=== PATIENT | male | born 1990 | race Caucasian/White ===

== ENCOUNTER 2019-06-25 10:25 | Emergency (ER) | payer OTHER ==
[~2019-06-25] VITALS: Ht 175.3 cm; Wt 95.3 kg
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
--- NOTE | 2019-06-25 10:41 | NUR ---
[employer] AT BEDSIDE.
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
[2019-06-25] MEDS ORDERED: MORPHINE SULFATE INJ 4 MG/ML DISP.SYRIN ONE (11:01)
[2019-06-25] MEDS ORDERED: TDAP [DIPH/PERTUSSIS/TET] 0.5 ML VIAL IM ONE (11:02)
[2019-06-25 11:06] LABS: BASOPHILS # (AUTO) 0.1 /CMM (0.0-0.2); BASOPHILS % (AUTO) 0.4 % (0.0-2.0); EOSINOPHILS % (AUTO) 0.1 % (0.0-6.0); HEMATOCRIT 45 % (39-51); HEMOGLOBIN 15.2 g/dL (13.5-17.5); LYMPHOCYTES # (AUTO) 2.1 /CMM (0.8-4.8); MEAN CORPUSCULAR HGB CONC 34 g/dl (31.0-36.0); MEAN CORPUSCULAR VOLUME 85 fL (80-96); MONOCYTES # (AUTO) 0.6 /CMM (0.1-1.30); NEUTROPHILS # (AUTO) 8.4 /CMM (1.8-8.9); NEUTROPHILS % (AUTO) 75.5 % (43.0-81.0); PLATELET COUNT (AUTO) 379 /CMM (150-450); RED BLOOD CELL COUNT(AUTO) 5.34 MIL/uL (4.5-6.0); WHITE BLOOD COUNT (AUTO) 11.1 K/uL (4.3-11.0)
[2019-06-25] MEDS: TDAP [DIPH/PERTUSSIS/TET] 0.5 ML VIAL IM ONE (11:10)
[2019-06-25] MEDS: IV NS 0.9% 1,000 ML BAG IV ONE (11:10)
[2019-06-25] MEDS: MORPHINE SULFATE INJ 2 MG/ML DISP.SYRIN IV ONE (11:10)
[2019-06-25 11:12] LABS: CALCIUM, SERUM 9.8 mg/dL (8.5-10.1); CREATININE 1.5 mg/dL (0.6-1.3); POTASSIUM 3.5 mmol/L (3.5-5.1)
[2019-06-25 11:18] LABS: ALBUMIN 4.3 g/dL (3.4-5.0); BILIRUBIN,DIRECT 0.2 mg/dL (0.0-0.2); BILIRUBIN,TOTAL 1.3 mg/dL (0.2-1.0)
--- NOTE | 2019-06-25 12:35 | NUR ---
Patient discharged to home in stable condition. Written and verbal after care instructions given. Patient verbalizes understanding of instruction.
[2019-06-25 12:52] VITALS: BP 138/85
== END 2019-06-25 12:53 | disposition home or self-care (01) ==
LOC: ER 10:26
DX: S00.211A Abrasion of right eyelid and periocular area, initial encounter (principal); S00.81XA Abrasion of other part of head, initial encounter; R51 Headache; G89.29 Other chronic pain; M25.551 Pain in right hip; F41.9 Anxiety disorder, unspecified; Z98.890 Other specified postprocedural states; Y08.89XA Assault by other specified means, initial encounter; Y93.39 Activity, other involving climbing, rappelling and jumping off; Y92.481 Parking lot as the place of occurrence of the external cause; Y99.8 Other external cause status
CPT/HCPCS: 36415; 70450; 70486; 71045; 72125; 73502; 80048; 80076; 85025; 85730; 90471; 90715; 96374; 99284; A6403; J2270; J7030

== ENCOUNTER 2021-05-02 23:47 | Inpatient (IN) | payer OTHER ==
[~2021-05-02] VITALS: Ht 175.3 cm; Wt 86.2 kg
[2021-05-03] VITALS (40 sets, daily range): BP systolic 84–137; BP diastolic 43–77
[2021-05-03] MEDS ORDERED: PROPOFOL 100 ML ONE (00:05)
[2021-05-03 00:13] LABS: BASOPHILS # (AUTO) 0.2 K/uL (0.0-0.2); BASOPHILS % (AUTO) 0.4 % (0.0-2.0); EOSINOPHILS % (AUTO) 0.1 % (0.0-6.0); HEMATOCRIT 52 % (39-51); HEMOGLOBIN 16.5 g/dL (13.5-17.5); LYMPHOCYTES # (AUTO) 1.3 K/uL (0.8-4.8); LYMPHOCYTES % (AUTO) 3.3 % (20.0-44.0); MEAN CORPUSCULAR HGB CONC 31 g/dl (31.0-36.0); MEAN CORPUSCULAR VOLUME 89 fL (80-96); MONOCYTES # (AUTO) 3.2 K/uL (0.1-1.30); MONOCYTES % (AUTO) 8.2 % (2.0-12.0); NEUTROPHILS # (AUTO) 34.8 K/uL (1.8-8.9); PLATELET COUNT (AUTO) 678 K/uL (150-450); RED BLOOD CELL COUNT(AUTO) 5.89 MIL/uL (4.5-6.0)
[2021-05-03 00:27] LABS: ALANINE AMINOTRANSFERASE 81 U/L (12-78); ALBUMIN 4.5 g/dL (3.4-5.0); ALKALINE PHOSPHATASE 77 U/L (46-116); ASPARTATE AMINOTRANSFERASE 46 U/L (15-37); BILIRUBIN,DIRECT 0.1 mg/dL (0.0-0.2); BILIRUBIN,TOTAL 0.5 mg/dL (0.2-1.0); CALCIUM, SERUM 9.3 mg/dL (8.5-10.1); CHLORIDE 107 mmol/L (98-107); CREATININE 2.4 mg/dL (0.6-1.3); GLUCOSE 179 mg/dL (74-106); POTASSIUM 5.4 mmol/L (3.5-5.1); SODIUM SERUM 141 mmol/L (136-145); TOTAL PROTEIN, SERUM 9.2 g/dL (6.4-8.2); UREA NITROGEN, BLOOD 21 mg/dL (7-18); WHITE BLOOD COUNT (AUTO) 39.5 K/uL (4.3-11.0)
[2021-05-03] MEDS ORDERED: IV NS 0.9% 1,000 ML BAG IV ONE ×2 (00:30)
[2021-05-03 00:40] LABS: CARBON DIOXIDE 6 mmol/L (21-32)
[2021-05-03] MEDS ORDERED: SODIUM BICARBONATE SYR 50 MEQ/50 ML DISP.SYRIN ONE ×6 (00:58→03:27)
[2021-05-03] MEDS ORDERED: SODIUM BICARBONATE SYR 50 MEQ/50 ML DISP.SYRIN IV ONE ×4 (01:00→03:30)
[2021-05-03 01:53] LABS: CREATINE KINASE, TOTAL 516 U/L (39-308)
[2021-05-03] MEDS ORDERED: PIPERACILLIN /TAZOBACTAM 3.375 G in IV D5W 50 ML IV ONE (02:00)
[2021-05-03] MEDS ORDERED: PIPERACILLIN /TAZOBACTAM 3.375 G VIAL IV ONE (02:02)
[2021-05-03] MEDS: [UNRECOGNIZED DRUG - OTHER] XX ONE ×2 (02:17→02:30)
[2021-05-03 02:40] LABS: ABG BASE EXCESS -28.6 mmol/L; ABG PCO2 52.2 mmHg (35.0-45.0); ABG PH 6.763 (7.350-7.450); ABG PO2 452.2 mmHg (75.0-100.0); COHb 0.3 % (0.5-1.5); MetHb 0.8 % (0.0-1.5); O2Hb 98.3 % (94.0-97.0); PEEP,BG 5 cm H2O; SITE, ABG Right Radial; VENT MODE, BG AC24 500 100% PEEP+0; VT, ABG 500 mL
[2021-05-03] MEDS ORDERED: SODIUM BICARBONATE 5 MEQ/10 ML DISP.SYRIN IV ONE (03:00)
[2021-05-03] MEDS ORDERED: ACETAMINOPHEN 325 MG TABLET PO PRN (04:00)
[2021-05-03] MEDS ORDERED: IV LR 1000 ML 1,000 ML IV SCH (04:00)
[2021-05-03] MEDS ORDERED: Z GUARD REMEDY 2 OZ OINT TP PRN (04:00)
[2021-05-03] MEDS ORDERED: MORPHINE SULFATE INJ 2 MG/ML DISP.SYRIN IV PRN (04:00)
[2021-05-03] MEDS ORDERED: ONDANSETRON HCL/PF 4 MG/2 ML VIAL IVP PRN (04:00)
[2021-05-03 05:10] LABS: ABG BASE EXCESS -23.4 mmol/L; ABG PCO2 45.9 mmHg (35.0-45.0); ABG PH 6.919 (7.350-7.450); ABG PO2 99.5 mmHg (75.0-100.0); COHb 0.2 % (0.5-1.5); MetHb 0.6 % (0.0-1.5); O2Hb 94.8 % (94.0-97.0); SITE, ABG Left Radial
[2021-05-03 05:13] LABS: CALCIUM, SERUM 7.4 mg/dL (8.5-10.1); CREATININE 3.3 mg/dL (0.6-1.3)
[2021-05-03 05:20] LABS: BILIRUBIN,TOTAL 0.5 mg/dL (0.2-1.0); TOTAL PROTEIN, SERUM 6.4 g/dL (6.4-8.2)
[2021-05-03] MEDS ORDERED: VANCOMYCIN 1 GM in IV D5W 250 ML IV ONE ×2 (05:30→08:30)
[2021-05-03] MEDS ORDERED: CEFEPIME 1 GM in IV D5W 50 ML IV ONE (05:30)
[2021-05-03] MEDS: PROPOFOL 100 ML IV PRN ×7 (08:22→21:58)
[2021-05-03] MEDS ORDERED: CEFEPIME 1 GM in IV D5W 50 ML IV SCH (09:00)
[2021-05-03] MEDS ORDERED: VANCOMYCIN 1 GM in IV D5W 250 ML IV SCH (09:00)
[2021-05-03] MEDS: SODIUM BICARBONATE IV SCH ×6 (09:06→21:58)
[2021-05-03] MEDS: [UNRECOGNIZED DRUG - OTHER] IV SCH ×6 (09:06→21:58)
[2021-05-03] MEDS ORDERED: FEE EMEERGENCY 1 MIN EA MC ONE (09:10)
[2021-05-03] MEDS ORDERED: ROCURONIUM BROMIDE 50 MG/5 ML IV ONE (09:10)
[2021-05-03] MEDS ORDERED: ETOMIDATE 2 MG/ML VIAL IV ONE (09:10)
[2021-05-03] MEDS: CEFEPIME 1 GM in IV D5W 50 ML IV SCH (10:03)
[2021-05-03 10:33] LABS: ABG BASE EXCESS -6.4 mmol/L; ABG PCO2 29.3 mmHg (35.0-45.0); ABG PH 7.389 (7.350-7.450); ABG PO2 268.3 mmHg (75.0-100.0); COHb 0.3 % (0.5-1.5); MetHb 0.3 % (0.0-1.5); O2Hb 98.3 % (94.0-97.0); SITE, ABG Right Radial
[2021-05-03] MEDS ORDERED: PHENYLEPHRINE 100 MG in IV NS 0.9% 240 ML IV PRN (11:00)
[2021-05-03 11:31] LABS: CALCIUM, SERUM 6.7 mg/dL (8.5-10.1); CREATININE 2.9 mg/dL (0.6-1.3); POTASSIUM 3.6 mmol/L (3.5-5.1)
[2021-05-03] MEDS: MORPHINE SULFATE INJ 2 MG/ML DISP.SYRIN IV PRN (11:34)
[2021-05-03 11:37] LABS: ALBUMIN 2.5 g/dL (3.4-5.0); TOTAL PROTEIN, SERUM 5.3 g/dL (6.4-8.2)
[2021-05-03 15:37] LABS: CALCIUM, SERUM 6.6 mg/dL (8.5-10.1); CREATININE 3.7 mg/dL (0.6-1.3); POTASSIUM 3.2 mmol/L (3.5-5.1)
[2021-05-03 15:43] LABS: ALBUMIN 2.3 g/dL (3.4-5.0); BILIRUBIN,TOTAL 1.2 mg/dL (0.2-1.0)
[2021-05-03 16:21] LABS: BILIRUBIN,URINE NEGATIVE (NEGATIVE); COLOR,URINE YELLOW (YELLOW); LEUKOCYTE ESTERASE ,URINE MODERATE (NEGATIVE); NITRITE, URINE NEGATIVE (NEGATIVE); PH,URINE 5.5 (5.0-8.0); PROTEIN,URINE 100 mg/dl (NEGATIVE); UGLUCOSE NEGATIVE (NEGATIVE); UROBILINOGEN,URINE 0.2 EU/dL (0.2)
[2021-05-03 16:35] LABS: BACTERIA,URINE Many /HPF (None Seen); RBC,URINE 51-80 /HPF (0-2); SQUAMOUS EPITHELIAL CELL,UR Moderate /HPF (None Seen)
[2021-05-03 20:24] LABS: CALCIUM, SERUM 6.5 mg/dL (8.5-10.1); CREATININE 4.5 mg/dL (0.6-1.3); POTASSIUM 3.2 mmol/L (3.5-5.1)
[2021-05-03 20:30] LABS: ALBUMIN 2.1 g/dL (3.4-5.0); BILIRUBIN,TOTAL 1.2 mg/dL (0.2-1.0); TOTAL PROTEIN, SERUM 5.1 g/dL (6.4-8.2)
[2021-05-03] MEDS: SILVER SULFADIAZINE 50 GM JAR TP SCH (20:36)
[2021-05-03 23:50] LABS: BAND % (MANUAL) 6 % (0.0-5.0); LYMPHOCYTES % (MANUAL) 6 % (16-48); NEUTROPHILS % (MANUAL) 83 (42-76)
[2021-05-03 23:51] LABS: MONOCYTES % (MANUAL) 5 % (0-11.0)
[2021-05-04] VITALS (33 sets, daily range): BP systolic 115–148; BP diastolic 60–90
[2021-05-04] MEDS: ACETAMINOPHEN 650 MG/SUPP.RECT RC PRN (00:52)
[2021-05-04] MEDS: PROPOFOL 100 ML IV PRN ×11 (01:14→23:58)
[2021-05-04 01:25] LABS: ALBUMIN 2.2 g/dL (3.4-5.0); BILIRUBIN,TOTAL 1.2 mg/dL (0.2-1.0); CALCIUM, SERUM 6.4 mg/dL (8.5-10.1); CREATININE 5.1 mg/dL (0.6-1.3); POTASSIUM 2.9 mmol/L (3.5-5.1); TOTAL PROTEIN, SERUM 5.1 g/dL (6.4-8.2)
[2021-05-04] MEDS: [UNRECOGNIZED DRUG - OTHER] IV SCH ×2 (02:47→07:48)
[2021-05-04] MEDS: SODIUM BICARBONATE IV SCH ×2 (02:47→07:48)
[2021-05-04 04:53] LABS: ALBUMIN 2.3 g/dL (3.4-5.0); BILIRUBIN,TOTAL 1.1 mg/dL (0.2-1.0); CALCIUM, SERUM 6.5 mg/dL (8.5-10.1); CREATININE 5.2 mg/dL (0.6-1.3); MAGNESIUM 1.4 mg/dL (1.8-2.4); PHOSPHORUS 1.5 mg/dL (2.5-4.9); TOTAL PROTEIN, SERUM 5.1 g/dL (6.4-8.2)
[2021-05-04 05:24] LABS: BASOPHILS % (AUTO) 0.3 % (0.0-2.0); HEMATOCRIT 31 % (39-51); HEMOGLOBIN 10.8 g/dL (13.5-17.5); LYMPHOCYTES # (AUTO) 1.4 K/uL (0.8-4.8); LYMPHOCYTES % (AUTO) 12.1 % (20.0-44.0); MEAN CORPUSCULAR HGB CONC 34 g/dl (31.0-36.0); MEAN CORPUSCULAR VOLUME 82 fL (80-96); MONOCYTES # (AUTO) 0.9 K/uL (0.1-1.30); MONOCYTES % (AUTO) 7.9 % (2.0-12.0); NEUTROPHILS # (AUTO) 9.1 K/uL (1.8-8.9); NEUTROPHILS % (AUTO) 79.7 % (43.0-81.0); PLATELET COUNT (AUTO) 190 K/uL (150-450); RED BLOOD CELL COUNT(AUTO) 3.84 MIL/uL (4.5-6.0); WHITE BLOOD COUNT (AUTO) 11.4 K/uL (4.3-11.0)
[2021-05-04 05:27] LABS: POTASSIUM 2.8 mmol/L (3.5-5.1)
[2021-05-04] MEDS: POTASSIUM CL. PREMIX PERIPHER. 50 ML IV SCH ×6 (07:58→23:34)
[2021-05-04] MEDS: Magnesium 1GM/D5W 100ML PREMIX 100 ML IV SCH ×2 (07:58→08:58)
[2021-05-04] MEDS ORDERED: VANCOMYCIN POST DIALYSIS 500MG IV PRN (08:00)
[2021-05-04] MEDS: CEFEPIME 1 GM in IV D5W 50 ML IV SCH (08:07)
[2021-05-04] MEDS: SILVER SULFADIAZINE 50 GM JAR TP SCH (08:20)
[2021-05-04] MEDS ORDERED: SODIUM BICARBONATE IV SCH (08:30)
[2021-05-04] MEDS ORDERED: [UNRECOGNIZED DRUG - OTHER] IV SCH (08:30)
[2021-05-04] MEDS: POTASSIUM PHOSPHATE MM 7.5 MMOL in IV NS 0.9% 100 ML IV SCH ×2 (08:41→11:10)
[2021-05-04 08:56] LABS: CREATININE 5.4 mg/dL (0.6-1.3)
[2021-05-04 09:17] LABS: POTASSIUM 2.1 mmol/L (3.5-5.1)
[2021-05-04 09:18] LABS: CALCIUM, SERUM 5.8 mg/dL (8.5-10.1)
[2021-05-04 09:24] LABS: ALBUMIN 1.9 g/dL (3.4-5.0); TOTAL PROTEIN, SERUM 4.5 g/dL (6.4-8.2)
[2021-05-04] MEDS ORDERED: Calcium Gluconate 1GM/10ML 4.65 MEQ in IV D5W 50 ML IV ONE (09:30)
[2021-05-04] MEDS: IV D5/ 0.9% NACL 1,000 ML IV PRN ×2 (09:47→21:48)
[2021-05-04 09:58] LABS: ABG BASE EXCESS 13.9 mmol/L; ABG OXYGEN SATURATION 93.7 % (92.0-98.5); ABG PCO2 28.8 mmHg (35.0-45.0); ABG PH 7.693 (7.350-7.450); ABG PO2 55.5 mmHg (75.0-100.0); AaDO2 268.6 mmHg; COHb 0.2 % (0.5-1.5); MetHb 0.3 % (0.0-1.5); O2Hb 93.2 % (94.0-97.0); PEEP,BG 50 cm H2O; SITE, ABG Right Radial; VT, ABG 550 mL
[2021-05-04] MEDS ORDERED: IV D5/ 0.9% NACL 1,000 ML IV ONE (10:00)
[2021-05-04 10:54] LABS: CALCIUM, SERUM 6.4 mg/dL (8.5-10.1); CREATININE 6.3 mg/dL (0.6-1.3); POTASSIUM 3.1 mmol/L (3.5-5.1); TOTAL PROTEIN, SERUM 4.9 g/dL (6.4-8.2)
[2021-05-04] MEDS ORDERED: NEPRO 1,000 ML BOTTLE GT PRN (14:00)
[2021-05-04] MEDS ORDERED: VANCOMYCIN 1 GM in IV D5W 250 ML IV ONE (17:00)
[2021-05-04 17:23] LABS: CREATININE 4.2 mg/dL (0.6-1.3); POTASSIUM 3.2 mmol/L (3.5-5.1)
[2021-05-04 17:29] LABS: BILIRUBIN,TOTAL 0.8 mg/dL (0.2-1.0); TOTAL PROTEIN, SERUM 5.2 g/dL (6.4-8.2)
[2021-05-04 20:43] LABS: BILIRUBIN,TOTAL 0.7 mg/dL (0.2-1.0); POTASSIUM 3.3 mmol/L (3.5-5.1); TOTAL PROTEIN, SERUM 5.1 g/dL (6.4-8.2)
[2021-05-04] MEDS: ACETAMINOPHEN 650 MG/20.3 ML UDC NG PRN (21:19)
[2021-05-04] MEDS ORDERED: POTASSIUM CHLORIDE 10 MEQ/50 ML PREMIXED IVPB FOR PERIPHERAL LINE IV ONE (23:30)
[2021-05-05] VITALS (35 sets, daily range): BP systolic 120–150; BP diastolic 62–102
[2021-05-05] MEDS: POTASSIUM CL. PREMIX PERIPHER. 50 ML IV SCH ×3 (00:13→01:17)
[2021-05-05] MEDS: PROPOFOL 100 ML IV PRN ×10 (01:58→22:25)
[2021-05-05 06:54] LABS: CALCIUM, SERUM 7.3 mg/dL (8.5-10.1); CREATININE 6.1 mg/dL (0.6-1.3); POTASSIUM 3.6 mmol/L (3.5-5.1)
[2021-05-05 06:59] LABS: ALBUMIN 1.9 g/dL (3.4-5.0); BILIRUBIN,TOTAL 0.6 mg/dL (0.2-1.0); TOTAL PROTEIN, SERUM 5.1 g/dL (6.4-8.2)
[2021-05-05 07:44] LABS: BASOPHILS % (AUTO) 0.3 % (0.0-2.0); EOSINOPHILS % (AUTO) 1.8 % (0.0-6.0); HEMATOCRIT 30 % (39-51); LYMPHOCYTES # (AUTO) 1.8 K/uL (0.8-4.8); LYMPHOCYTES % (AUTO) 19.9 % (20.0-44.0); MEAN CORPUSCULAR HGB CONC 34 g/dl (31.0-36.0); MEAN CORPUSCULAR VOLUME 84 fL (80-96); MONOCYTES # (AUTO) 0.7 K/uL (0.1-1.30); NEUTROPHILS # (AUTO) 6.5 K/uL (1.8-8.9); PLATELET COUNT (AUTO) 175 K/uL (150-450); RED BLOOD CELL COUNT(AUTO) 3.49 MIL/uL (4.5-6.0); WHITE BLOOD COUNT (AUTO) 9.3 K/uL (4.3-11.0)
[2021-05-05 08:39] LABS: BILIRUBIN,TOTAL 0.7 mg/dL (0.2-1.0); CALCIUM, SERUM 7.4 mg/dL (8.5-10.1); CREATININE 6.6 mg/dL (0.6-1.3); POTASSIUM 3.8 mmol/L (3.5-5.1); TOTAL PROTEIN, SERUM 5.2 g/dL (6.4-8.2)
[2021-05-05] MEDS: CEFEPIME 1 GM in IV D5W 50 ML IV SCH (08:48)
[2021-05-05] MEDS: SILVER SULFADIAZINE 50 GM JAR TP SCH (08:49)
[2021-05-05 08:52] LABS: ABG BASE EXCESS 1.2 mmol/L; ABG PCO2 37.4 mmHg (35.0-45.0); ABG PH 7.445 (7.350-7.450); COHb 0.3 % (0.5-1.5); MetHb 0.2 % (0.0-1.5); PEEP,BG 5 cm H2O; VT, ABG 500 mL
[2021-05-05 11:17] LABS: CALCIUM, SERUM 7.4 mg/dL (8.5-10.1); CREATININE 6.8 mg/dL (0.6-1.3); POTASSIUM 3.9 mmol/L (3.5-5.1)
[2021-05-05 11:31] LABS: BILIRUBIN,TOTAL 0.6 mg/dL (0.2-1.0); TOTAL PROTEIN, SERUM 5.2 g/dL (6.4-8.2)
[2021-05-05] MEDS: IV D5/ 0.9% NACL 1,000 ML IV PRN (11:32)
[2021-05-05] MEDS: ACETAMINOPHEN 650 MG/20.3 ML UDC NG PRN (14:32)
[2021-05-05 16:47] LABS: BILIRUBIN,TOTAL 0.6 mg/dL (0.2-1.0); CALCIUM, SERUM 8.2 mg/dL (8.5-10.1); POTASSIUM 3.9 mmol/L (3.5-5.1); TOTAL PROTEIN, SERUM 5.4 g/dL (6.4-8.2)
[2021-05-05 17:00] LABS: CREATININE 7.7 mg/dL (0.6-1.3)
[2021-05-05 20:43] LABS: BILIRUBIN,TOTAL 0.6 mg/dL (0.2-1.0); CALCIUM, SERUM 7.3 mg/dL (8.5-10.1); POTASSIUM 3.8 mmol/L (3.5-5.1); TOTAL PROTEIN, SERUM 5.3 g/dL (6.4-8.2)
[2021-05-05 20:49] LABS: CREATININE 8.1 mg/dL (0.6-1.3)
[2021-05-05] MEDS: NEPRO 1,000 ML BOTTLE GT PRN (22:24)
[2021-05-06] VITALS (52 sets, daily range): BP systolic 135–167; BP diastolic 70–99
[2021-05-06] MEDS: PROPOFOL 100 ML IV PRN ×13 (00:07→23:49)
[2021-05-06] MEDS: IV D5/ 0.9% NACL 1,000 ML IV PRN (00:08)
[2021-05-06 01:41] LABS: BILIRUBIN,TOTAL 0.5 mg/dL (0.2-1.0); POTASSIUM 3.8 mmol/L (3.5-5.1); TOTAL PROTEIN, SERUM 5.3 g/dL (6.4-8.2)
[2021-05-06 01:49] LABS: CALCIUM, SERUM 7.5 mg/dL (8.5-10.1)
[2021-05-06 01:50] LABS: CREATININE 8.7 mg/dL (0.6-1.3)
[2021-05-06 04:28] LABS: BASOPHILS # (AUTO) 0.1 K/uL (0.0-0.2); EOSINOPHILS % (AUTO) 3.4 % (0.0-6.0); HEMATOCRIT 29 % (39-51); HEMOGLOBIN 10.1 g/dL (13.5-17.5); LYMPHOCYTES # (AUTO) 1.3 K/uL (0.8-4.8); LYMPHOCYTES % (AUTO) 15.4 % (20.0-44.0); MEAN CORPUSCULAR HGB CONC 34 g/dl (31.0-36.0); MEAN CORPUSCULAR VOLUME 84 fL (80-96); MONOCYTES # (AUTO) 0.6 K/uL (0.1-1.30); MONOCYTES % (AUTO) 7.4 % (2.0-12.0); NEUTROPHILS # (AUTO) 6.1 K/uL (1.8-8.9); NEUTROPHILS % (AUTO) 72.8 % (43.0-81.0); PLATELET COUNT (AUTO) 200 K/uL (150-450); RED BLOOD CELL COUNT(AUTO) 3.52 MIL/uL (4.5-6.0); WHITE BLOOD COUNT (AUTO) 8.3 K/uL (4.3-11.0)
[2021-05-06 04:47] LABS: ALBUMIN 1.9 g/dL (3.4-5.0); BILIRUBIN,TOTAL 0.6 mg/dL (0.2-1.0); CALCIUM, SERUM 7.9 mg/dL (8.5-10.1); POTASSIUM 3.8 mmol/L (3.5-5.1); TOTAL PROTEIN, SERUM 5.3 g/dL (6.4-8.2)
[2021-05-06 05:17] LABS: CREATININE 8.6 mg/dL (0.6-1.3)
[2021-05-06] MEDS: CEFEPIME 1 GM in IV D5W 50 ML IV SCH (08:33)
[2021-05-06 08:45] LABS: ALBUMIN 1.9 g/dL (3.4-5.0); BILIRUBIN,TOTAL 0.5 mg/dL (0.2-1.0); CALCIUM, SERUM 7.7 mg/dL (8.5-10.1); POTASSIUM 3.8 mmol/L (3.5-5.1); TOTAL PROTEIN, SERUM 5.4 g/dL (6.4-8.2)
[2021-05-06] MEDS: SILVER SULFADIAZINE 50 GM JAR TP SCH (08:53)
[2021-05-06 09:33] LABS: CREATININE 9.3 mg/dL (0.6-1.3)
[2021-05-06] MEDS: NEPRO 1,000 ML BOTTLE GT PRN (10:05)
[2021-05-06] MEDS ORDERED: NEPRO 1,000 ML BOTTLE GT PRN (10:30)
[2021-05-06 11:49] LABS: CALCIUM, SERUM 7.7 mg/dL (8.5-10.1)
[2021-05-06 11:51] LABS: CREATININE 9.6 mg/dL (0.6-1.3)
[2021-05-06 11:56] LABS: BILIRUBIN,TOTAL 0.6 mg/dL (0.2-1.0); TOTAL PROTEIN, SERUM 5.5 g/dL (6.4-8.2)
[2021-05-06] MEDS: PROSOURCE / PROSTAT (PYXIS) 30 ML UDC NG SCH ×2 (12:52→16:02)
[2021-05-06] MEDS: ACETAMINOPHEN 650 MG/20.3 ML UDC NG PRN (16:08)
[2021-05-06] MEDS: hydrALAZINE HCL IV 20 MG VIAL IV PRN (18:32)
[2021-05-06 20:35] LABS: CALCIUM, SERUM 7.6 mg/dL (8.5-10.1); CREATININE 6.9 mg/dL (0.6-1.3); POTASSIUM 3.5 mmol/L (3.5-5.1)
[2021-05-06 20:50] LABS: ALBUMIN 2.1 g/dL (3.4-5.0); BILIRUBIN,TOTAL 0.5 mg/dL (0.2-1.0); TOTAL PROTEIN, SERUM 5.8 g/dL (6.4-8.2)
[2021-05-06] MEDS ORDERED: ALTEPLASE CATHFLO 2 MG/VIAL ONE ×2 (21:54→22:32)
[2021-05-06] MEDS ORDERED: ALTEPLASE CATHFLO 2 MG/VIAL XX ONE ×2 (22:00→22:30)
[2021-05-07] VITALS (91 sets, daily range): BP systolic 140–172; BP diastolic 70–96
[2021-05-07] MEDS: PROPOFOL 100 ML IV PRN ×11 (01:22→23:27)
[2021-05-07 01:57] LABS: BILIRUBIN,TOTAL 0.6 mg/dL (0.2-1.0); CALCIUM, SERUM 7.8 mg/dL (8.5-10.1); POTASSIUM 3.8 mmol/L (3.5-5.1); TOTAL PROTEIN, SERUM 5.6 g/dL (6.4-8.2)
[2021-05-07 02:06] LABS: CREATININE 10.1 mg/dL (0.6-1.3)
[2021-05-07] MEDS: MORPHINE SULFATE INJ 2 MG/ML DISP.SYRIN IV PRN (04:21)
[2021-05-07 05:03] LABS: BASOPHILS % (AUTO) 0.5 % (0.0-2.0); EOSINOPHILS % (AUTO) 4.5 % (0.0-6.0); HEMATOCRIT 29 % (39-51); HEMOGLOBIN 10.2 g/dL (13.5-17.5); LYMPHOCYTES # (AUTO) 0.8 K/uL (0.8-4.8); MEAN CORPUSCULAR HGB CONC 35 g/dl (31.0-36.0); MEAN CORPUSCULAR VOLUME 83 fL (80-96); MONOCYTES # (AUTO) 0.7 K/uL (0.1-1.30); MONOCYTES % (AUTO) 7.6 % (2.0-12.0); NEUTROPHILS # (AUTO) 7.1 K/uL (1.8-8.9); NEUTROPHILS % (AUTO) 78.4 % (43.0-81.0); PLATELET COUNT (AUTO) 216 K/uL (150-450); RED BLOOD CELL COUNT(AUTO) 3.53 MIL/uL (4.5-6.0); WHITE BLOOD COUNT (AUTO) 9.1 K/uL (4.3-11.0)
[2021-05-07 05:35] LABS: ALBUMIN 1.9 g/dL (3.4-5.0); BILIRUBIN,TOTAL 0.6 mg/dL (0.2-1.0); CALCIUM, SERUM 7.8 mg/dL (8.5-10.1); POTASSIUM 3.9 mmol/L (3.5-5.1); TOTAL PROTEIN, SERUM 5.4 g/dL (6.4-8.2)
[2021-05-07] MEDS: SILVER SULFADIAZINE 50 GM JAR TP SCH ×2 (05:53→09:26)
[2021-05-07] MEDS: NEPRO 1,000 ML BOTTLE GT PRN ×2 (05:54→18:11)
[2021-05-07 05:56] LABS: CREATININE 10.5 mg/dL (0.6-1.3)
[2021-05-07 08:30] LABS: ABG BASE EXCESS -2.6 mmol/L; ABG PCO2 37.2 mmHg (35.0-45.0); ABG PH 7.389 (7.350-7.450); ABG PO2 109.6 mmHg (75.0-100.0); AaDO2 96.7 mmHg; MetHb 0.3 % (0.0-1.5); O2Hb 96.7 % (94.0-97.0); PEEP,BG 5 cm H2O; SITE, ABG Right Radial; VT, ABG 500 mL
[2021-05-07] MEDS: CEFEPIME 1 GM in IV D5W 50 ML IV SCH (09:25)
[2021-05-07] MEDS: PROSOURCE / PROSTAT (PYXIS) 30 ML UDC NG SCH ×2 (09:25→17:12)
[2021-05-07 12:06] LABS: CALCIUM, SERUM 8.2 mg/dL (8.5-10.1); POTASSIUM 4.7 mmol/L (3.5-5.1)
[2021-05-07 12:10] LABS: CREATININE 11.1 mg/dL (0.6-1.3)
[2021-05-07 13:23] LABS: ALBUMIN 1.9 g/dL (3.4-5.0); BILIRUBIN,TOTAL 0.6 mg/dL (0.2-1.0)
[2021-05-07 13:24] LABS: TOTAL PROTEIN, SERUM 5.4 g/dL (6.4-8.2)
[2021-05-07] MEDS: FENTANYL CITRAT IV 2,500 MCG in IV NS 0.9% 200 ML IV PRN (13:35)
[2021-05-07 16:39] LABS: CALCIUM, SERUM 8.1 mg/dL (8.5-10.1); POTASSIUM 4.5 mmol/L (3.5-5.1)
[2021-05-07 16:43] LABS: CREATININE 11.7 mg/dL (0.6-1.3)
[2021-05-07 16:46] LABS: BILIRUBIN,TOTAL 0.7 mg/dL (0.2-1.0); TOTAL PROTEIN, SERUM 5.7 g/dL (6.4-8.2)
[2021-05-07] MEDS: hydrALAZINE HCL IV 20 MG VIAL IV PRN (18:16)
[2021-05-07 19:29] LABS: BILIRUBIN,TOTAL 0.7 mg/dL (0.2-1.0); CALCIUM, SERUM 8.1 mg/dL (8.5-10.1); POTASSIUM 4.3 mmol/L (3.5-5.1); TOTAL PROTEIN, SERUM 5.8 g/dL (6.4-8.2)
[2021-05-07 19:31] LABS: CREATININE 11.8 mg/dL (0.6-1.3)
[2021-05-08] VITALS (95 sets, daily range): BP systolic 118–165; BP diastolic 57–92
[2021-05-08] MEDS: PROPOFOL 100 ML IV PRN ×12 (01:19→23:04)
[2021-05-08 05:06] LABS: BASOPHILS % (AUTO) 0.3 % (0.0-2.0); EOSINOPHILS % (AUTO) 5.6 % (0.0-6.0); HEMATOCRIT 29 % (39-51); HEMOGLOBIN 9.9 g/dL (13.5-17.5); LYMPHOCYTES # (AUTO) 1.1 K/uL (0.8-4.8); LYMPHOCYTES % (AUTO) 11.6 % (20.0-44.0); MEAN CORPUSCULAR HGB CONC 34 g/dl (31.0-36.0); MEAN CORPUSCULAR VOLUME 85 fL (80-96); MONOCYTES # (AUTO) 0.9 K/uL (0.1-1.30); MONOCYTES % (AUTO) 9.3 % (2.0-12.0); NEUTROPHILS % (AUTO) 73.2 % (43.0-81.0); PLATELET COUNT (AUTO) 218 K/uL (150-450); RED BLOOD CELL COUNT(AUTO) 3.45 MIL/uL (4.5-6.0); WHITE BLOOD COUNT (AUTO) 9.5 K/uL (4.3-11.0)
[2021-05-08 05:17] LABS: ALBUMIN 1.9 g/dL (3.4-5.0); BILIRUBIN,TOTAL 0.8 mg/dL (0.2-1.0); CALCIUM, SERUM 8.3 mg/dL (8.5-10.1); POTASSIUM 4.6 mmol/L (3.5-5.1); TOTAL PROTEIN, SERUM 5.7 g/dL (6.4-8.2)
[2021-05-08 05:23] LABS: CREATININE 12.9 mg/dL (0.6-1.3)
[2021-05-08] MEDS: CEFEPIME 1 GM in IV D5W 50 ML IV SCH (08:01)
[2021-05-08] MEDS: PROSOURCE / PROSTAT (PYXIS) 30 ML UDC NG SCH ×2 (08:37→17:14)
[2021-05-08] MEDS: VANCOMYCIN POST DIALYSIS 500MG IV PRN (15:16)
[2021-05-08] MEDS: NEPRO 1,000 ML BOTTLE GT PRN (18:38)
[2021-05-08] MEDS: FENTANYL CITRAT IV 2,500 MCG in IV NS 0.9% 200 ML IV PRN (23:18)
[2021-05-09] VITALS (92 sets, daily range): BP systolic 118–169; BP diastolic 63–118
[2021-05-09] MEDS: PROPOFOL 100 ML IV PRN ×8 (00:58→12:11)
[2021-05-09] MEDS: hydrALAZINE HCL IV 20 MG VIAL IV PRN (02:54)
[2021-05-09] MEDS: FENTANYL CITRAT IV 2,500 MCG in IV NS 0.9% 200 ML IV PRN ×3 (04:33→20:29)
[2021-05-09 04:40] LABS: BASOPHILS % (AUTO) 0.3 % (0.0-2.0); EOSINOPHILS % (AUTO) 4.1 % (0.0-6.0); HEMATOCRIT 29 % (39-51); LYMPHOCYTES # (AUTO) 1.6 K/uL (0.8-4.8); LYMPHOCYTES % (AUTO) 12.9 % (20.0-44.0); MEAN CORPUSCULAR HGB CONC 34 g/dl (31.0-36.0); MEAN CORPUSCULAR VOLUME 83 fL (80-96); MONOCYTES # (AUTO) 1.1 K/uL (0.1-1.30); NEUTROPHILS # (AUTO) 8.9 K/uL (1.8-8.9); NEUTROPHILS % (AUTO) 73.7 % (43.0-81.0); PLATELET COUNT (AUTO) 231 K/uL (150-450); RED BLOOD CELL COUNT(AUTO) 3.48 MIL/uL (4.5-6.0); WHITE BLOOD COUNT (AUTO) 12.1 K/uL (4.3-11.0)
[2021-05-09 04:57] LABS: CALCIUM, SERUM 8.4 mg/dL (8.5-10.1); POTASSIUM 4.2 mmol/L (3.5-5.1)
[2021-05-09 05:21] LABS: CREATININE 10.6 mg/dL (0.6-1.3)
[2021-05-09] MEDS: CEFEPIME 1 GM in IV D5W 50 ML IV SCH (08:40)
[2021-05-09] MEDS: SILVER SULFADIAZINE 50 GM JAR TP SCH (08:40)
[2021-05-09] MEDS: PROSOURCE / PROSTAT (PYXIS) 30 ML UDC NG SCH ×2 (09:00→17:27)
[2021-05-09] MEDS ORDERED: MIDAZOLAM HCL 50 MG in IV NS 0.9% 40 ML IV PRN (10:30)
[2021-05-09] MEDS ORDERED: MIDAZOLAM HCL 100 MG in IV NS 0.9% 80 ML IV PRN (10:30)
[2021-05-09] MEDS: MIDAZOLAM HCL 100 MG in IV NS 0.9% 80 ML IV PRN (14:09)
[2021-05-09] MEDS: MORPHINE SULFATE INJ 2 MG/ML DISP.SYRIN IV PRN (14:15)
[2021-05-09] MEDS ORDERED: MORPHINE SULFATE INJ 4 MG/ML DISP.SYRIN IV ONE (14:30)
[2021-05-09] MEDS: NEPRO 1,000 ML BOTTLE GT PRN (15:54)
[2021-05-09] MEDS ORDERED: ONDANSETRON HCL/PF 4 MG/2 ML VIAL IV PRN (19:30)
[2021-05-09 19:50] LABS: BASOPHILS # (AUTO) 0.1 K/uL (0.0-0.2); BASOPHILS % (AUTO) 0.4 % (0.0-2.0); EOSINOPHILS % (AUTO) 3.2 % (0.0-6.0); HEMATOCRIT 28 % (39-51); HEMOGLOBIN 9.2 g/dL (13.5-17.5); LYMPHOCYTES # (AUTO) 1.2 K/uL (0.8-4.8); LYMPHOCYTES % (AUTO) 9.9 % (20.0-44.0); MEAN CORPUSCULAR HGB CONC 34 g/dl (31.0-36.0); MEAN CORPUSCULAR VOLUME 84 fL (80-96); MONOCYTES # (AUTO) 1.1 K/uL (0.1-1.30); MONOCYTES % (AUTO) 9.5 % (2.0-12.0); NEUTROPHILS # (AUTO) 9.1 K/uL (1.8-8.9); PLATELET COUNT (AUTO) 268 K/uL (150-450); RED BLOOD CELL COUNT(AUTO) 3.29 MIL/uL (4.5-6.0); WHITE BLOOD COUNT (AUTO) 11.9 K/uL (4.3-11.0)
[2021-05-09] MEDS: PANTOPRAZOLE 40 MG VIAL IV SCH (22:03)
[2021-05-10] VITALS (80 sets, daily range): BP systolic 115–149; BP diastolic 55–87
[2021-05-10 04:29] LABS: BASOPHILS # (AUTO) 0.1 K/uL (0.0-0.2); BASOPHILS % (AUTO) 0.4 % (0.0-2.0); HEMATOCRIT 27 % (39-51); HEMOGLOBIN 8.8 g/dL (13.5-17.5); LYMPHOCYTES # (AUTO) 1.1 K/uL (0.8-4.8); LYMPHOCYTES % (AUTO) 8.6 % (20.0-44.0); MEAN CORPUSCULAR HGB CONC 33 g/dl (31.0-36.0); MEAN CORPUSCULAR VOLUME 84 fL (80-96); MONOCYTES # (AUTO) 1.3 K/uL (0.1-1.30); MONOCYTES % (AUTO) 10.2 % (2.0-12.0); NEUTROPHILS # (AUTO) 10.2 K/uL (1.8-8.9); NEUTROPHILS % (AUTO) 77.8 % (43.0-81.0); PLATELET COUNT (AUTO) 279 K/uL (150-450); RED BLOOD CELL COUNT(AUTO) 3.15 MIL/uL (4.5-6.0); WHITE BLOOD COUNT (AUTO) 13.1 K/uL (4.3-11.0)
[2021-05-10 04:33] LABS: CALCIUM, SERUM 8.8 mg/dL (8.5-10.1); POTASSIUM 5.9 mmol/L (3.5-5.1)
[2021-05-10] MEDS: FENTANYL CITRAT IV 2,500 MCG in IV NS 0.9% 200 ML IV PRN ×3 (04:39→22:52)
[2021-05-10 05:08] LABS: CREATININE 13.2 mg/dL (0.6-1.3)
[2021-05-10] MEDS: PANTOPRAZOLE 40 MG VIAL IV SCH ×2 (08:26→20:58)
[2021-05-10] MEDS: PROSOURCE / PROSTAT (PYXIS) 30 ML UDC NG SCH ×2 (08:26→16:12)
[2021-05-10] MEDS: SILVER SULFADIAZINE 50 GM JAR TP SCH (08:27)
[2021-05-10] MEDS: MIDAZOLAM HCL 100 MG in IV NS 0.9% 80 ML IV PRN (09:49)
[2021-05-10] MEDS: ACETAMINOPHEN 650 MG/20.3 ML UDC NG PRN (10:18)
[2021-05-10] MEDS ORDERED: MORPHINE SULFATE 8 MG/ML VIAL IV ONE (14:30)
[2021-05-10] MEDS ORDERED: MORPHINE SULFATE INJ 4 MG/ML DISP.SYRIN IVP PRN (14:30)
[2021-05-10] MEDS: MORPHINE SULFATE INJ 2 MG/ML DISP.SYRIN IV PRN (14:32)
[2021-05-10] MEDS ORDERED: MEROPENEM 1 G in IV NS 0.9% 100 ML IV SCH (16:00)
[2021-05-10] MEDS: MEROPENEM 500 MG in IV NS 0.9% 50 ML IV SCH (16:02)
[2021-05-10] MEDS: VANCOMYCIN POST DIALYSIS 500MG IV PRN (20:58)
[2021-05-11] VITALS (26 sets, daily range): BP systolic 135–156; BP diastolic 67–86
[2021-05-11] MEDS: ACETAMINOPHEN 650 MG/SUPP.RECT RC PRN ×2 (00:34→13:13)
[2021-05-11] MEDS: MIDAZOLAM HCL 100 MG in IV NS 0.9% 80 ML IV PRN ×2 (01:38→14:56)
[2021-05-11 05:51] LABS: BASOPHILS # (AUTO) 0.1 K/uL (0.0-0.2); BASOPHILS % (AUTO) 0.6 % (0.0-2.0); EOSINOPHILS % (AUTO) 1.8 % (0.0-6.0); HEMATOCRIT 23 % (39-51); HEMOGLOBIN 7.9 g/dL (13.5-17.5); LYMPHOCYTES # (AUTO) 1.1 K/uL (0.8-4.8); LYMPHOCYTES % (AUTO) 11.3 % (20.0-44.0); MEAN CORPUSCULAR HGB CONC 35 g/dl (31.0-36.0); MEAN CORPUSCULAR VOLUME 84 fL (80-96); MONOCYTES # (AUTO) 1.1 K/uL (0.1-1.30); MONOCYTES % (AUTO) 11.2 % (2.0-12.0); NEUTROPHILS # (AUTO) 7.6 K/uL (1.8-8.9); NEUTROPHILS % (AUTO) 75.1 % (43.0-81.0); PLATELET COUNT (AUTO) 322 K/uL (150-450); RED BLOOD CELL COUNT(AUTO) 2.68 MIL/uL (4.5-6.0); WHITE BLOOD COUNT (AUTO) 10.1 K/uL (4.3-11.0)
[2021-05-11 06:58] LABS: CALCIUM, SERUM 9.3 mg/dL (8.5-10.1); POTASSIUM 5.3 mmol/L (3.5-5.1)
[2021-05-11] MEDS: FENTANYL CITRAT IV 2,500 MCG in IV NS 0.9% 200 ML IV PRN ×2 (07:34→16:01)
[2021-05-11] MEDS: PANTOPRAZOLE 40 MG VIAL IV SCH (08:11)
[2021-05-11] MEDS: PROSOURCE / PROSTAT (PYXIS) 30 ML UDC NG SCH ×2 (08:12→17:04)
[2021-05-11] MEDS: SILVER SULFADIAZINE 50 GM JAR TP SCH (08:13)
[2021-05-11] MEDS: ACETAMINOPHEN 650 MG/20.3 ML UDC NG PRN ×2 (09:55→17:31)
[2021-05-11] MEDS: MEROPENEM 500 MG in IV NS 0.9% 50 ML IV SCH (15:31)
[2021-05-11] MEDS: PANTOPRAZOLE 40 MG/PACK PACK GT SCH (21:39)
[2021-05-12] VITALS (52 sets, daily range): BP systolic 123–167; BP diastolic 68–98
[2021-05-12] MEDS: FENTANYL CITRAT IV 2,500 MCG in IV NS 0.9% 200 ML IV PRN ×3 (00:09→17:15)
[2021-05-12 05:08] LABS: BASOPHILS % (AUTO) 0.5 % (0.0-2.0); EOSINOPHILS % (AUTO) 1.9 % (0.0-6.0); HEMATOCRIT 21 % (39-51); HEMOGLOBIN 7.3 g/dL (13.5-17.5); LYMPHOCYTES # (AUTO) 1.3 K/uL (0.8-4.8); LYMPHOCYTES % (AUTO) 14.4 % (20.0-44.0); MEAN CORPUSCULAR HGB CONC 35 g/dl (31.0-36.0); MEAN CORPUSCULAR VOLUME 84 fL (80-96); MONOCYTES # (AUTO) 1.1 K/uL (0.1-1.30); MONOCYTES % (AUTO) 11.4 % (2.0-12.0); NEUTROPHILS # (AUTO) 6.7 K/uL (1.8-8.9); NEUTROPHILS % (AUTO) 71.8 % (43.0-81.0); PLATELET COUNT (AUTO) 361 K/uL (150-450); RED BLOOD CELL COUNT(AUTO) 2.49 MIL/uL (4.5-6.0); WHITE BLOOD COUNT (AUTO) 9.3 K/uL (4.3-11.0)
[2021-05-12] MEDS: MIDAZOLAM HCL 100 MG in IV NS 0.9% 80 ML IV PRN ×2 (05:09→21:03)
[2021-05-12 05:16] LABS: CALCIUM, SERUM 8.5 mg/dL (8.5-10.1)
[2021-05-12 06:17] LABS: CREATININE 7.8 mg/dL (0.6-1.3)
[2021-05-12 08:28] LABS: CREATININE 7.8 mg/dL (0.6-1.3)
[2021-05-12] MEDS: PROSOURCE / PROSTAT (PYXIS) 30 ML UDC NG SCH ×2 (09:00→16:20)
[2021-05-12] MEDS: PANTOPRAZOLE 40 MG/PACK PACK GT SCH ×2 (09:00→20:32)
[2021-05-12] MEDS: SILVER SULFADIAZINE 50 GM JAR TP SCH (09:08)
[2021-05-12] MEDS: ACETAMINOPHEN 650 MG/20.3 ML UDC NG PRN (09:46)
[2021-05-12] MEDS ORDERED: HEPARIN SODIUM, PORCINE 1,000 UNIT/ML VIAL ONE (09:52)
[2021-05-12] MEDS ORDERED: LIDOCAINE 1% INJ 50 ML MDV IJ ONE (09:52)
[2021-05-12] MEDS ORDERED: FENTANYL PF 100MCG/2ML AMPUL ONE (11:00)
[2021-05-12] MEDS: MEROPENEM 500 MG in IV NS 0.9% 50 ML IV SCH (16:20)
[2021-05-13] VITALS (62 sets, daily range): BP systolic 128–157; BP diastolic 65–86
[2021-05-13] MEDS: ACETAMINOPHEN 650 MG/SUPP.RECT RC PRN (00:48)
[2021-05-13] MEDS: FENTANYL CITRAT IV 2,500 MCG in IV NS 0.9% 200 ML IV PRN ×3 (00:49→18:05)
[2021-05-13 07:43] LABS: BASOPHILS # (AUTO) 0.1 K/uL (0.0-0.2); BASOPHILS % (AUTO) 0.7 % (0.0-2.0); EOSINOPHILS % (AUTO) 3.1 % (0.0-6.0); HEMATOCRIT 22 % (39-51); HEMOGLOBIN 7.4 g/dL (13.5-17.5); LYMPHOCYTES # (AUTO) 1.4 K/uL (0.8-4.8); LYMPHOCYTES % (AUTO) 15.2 % (20.0-44.0); MEAN CORPUSCULAR HGB CONC 34 g/dl (31.0-36.0); MEAN CORPUSCULAR VOLUME 85 fL (80-96); MONOCYTES # (AUTO) 1.1 K/uL (0.1-1.30); MONOCYTES % (AUTO) 11.3 % (2.0-12.0); NEUTROPHILS # (AUTO) 6.5 K/uL (1.8-8.9); NEUTROPHILS % (AUTO) 69.7 % (43.0-81.0); PLATELET COUNT (AUTO) 456 K/uL (150-450); WHITE BLOOD COUNT (AUTO) 9.3 K/uL (4.3-11.0)
[2021-05-13 07:58] LABS: CALCIUM, SERUM 8.8 mg/dL (8.5-10.1)
[2021-05-13 08:00] LABS: CREATININE 10.5 mg/dL (0.6-1.3)
[2021-05-13] MEDS: PANTOPRAZOLE 40 MG/PACK PACK GT SCH ×2 (08:46→21:31)
[2021-05-13] MEDS: PROSOURCE / PROSTAT (PYXIS) 30 ML UDC NG SCH ×2 (08:46→16:39)
[2021-05-13] MEDS: SILVER SULFADIAZINE CREAM 25 GM TUBE TP SCH (08:47)
[2021-05-13] MEDS: NEPRO 1,000 ML BOTTLE GT PRN (08:52)
[2021-05-13] MEDS: MIDAZOLAM HCL 100 MG in IV NS 0.9% 80 ML IV PRN (10:56)
[2021-05-13] MEDS ORDERED: VANCOMYCIN 1 GM in IV D5W 250 ML IV ONE (16:00)
[2021-05-13] MEDS: MEROPENEM 500 MG in IV NS 0.9% 50 ML IV SCH (16:06)
[2021-05-13] MEDS: ACETAMINOPHEN 650 MG/20.3 ML UDC NG PRN (21:31)
[2021-05-14] VITALS (30 sets, daily range): BP systolic 132–154; BP diastolic 61–90
[2021-05-14] MEDS: MIDAZOLAM HCL 100 MG in IV NS 0.9% 80 ML IV PRN ×3 (00:02→21:26)
[2021-05-14] MEDS: FENTANYL CITRAT IV 2,500 MCG in IV NS 0.9% 200 ML IV PRN ×3 (02:35→20:04)
[2021-05-14 05:54] LABS: BASOPHILS # (AUTO) 0.1 K/uL (0.0-0.2); BASOPHILS % (AUTO) 1.2 % (0.0-2.0); EOSINOPHILS % (AUTO) 2.9 % (0.0-6.0); HEMATOCRIT 22 % (39-51); HEMOGLOBIN 7.4 g/dL (13.5-17.5); LYMPHOCYTES # (AUTO) 1.6 K/uL (0.8-4.8); LYMPHOCYTES % (AUTO) 18.4 % (20.0-44.0); MEAN CORPUSCULAR HGB CONC 34 g/dl (31.0-36.0); MEAN CORPUSCULAR VOLUME 85 fL (80-96); MONOCYTES # (AUTO) 0.8 K/uL (0.1-1.30); MONOCYTES % (AUTO) 9.9 % (2.0-12.0); NEUTROPHILS # (AUTO) 5.7 K/uL (1.8-8.9); NEUTROPHILS % (AUTO) 67.6 % (43.0-81.0); PLATELET COUNT (AUTO) 507 K/uL (150-450); RED BLOOD CELL COUNT(AUTO) 2.59 MIL/uL (4.5-6.0); WHITE BLOOD COUNT (AUTO) 8.5 K/uL (4.3-11.0)
[2021-05-14 06:04] LABS: BILIRUBIN,TOTAL 0.4 mg/dL (0.2-1.0); CALCIUM, SERUM 8.4 mg/dL (8.5-10.1); POTASSIUM 4.8 mmol/L (3.5-5.1); TOTAL PROTEIN, SERUM 5.9 g/dL (6.4-8.2)
[2021-05-14 06:10] LABS: CREATININE 9.1 mg/dL (0.6-1.3)
[2021-05-14] MEDS: ACETAMINOPHEN 650 MG/20.3 ML UDC NG PRN ×2 (06:14→21:08)
[2021-05-14] MEDS: PROSOURCE / PROSTAT (PYXIS) 30 ML UDC NG SCH ×2 (09:15→16:10)
[2021-05-14] MEDS: PANTOPRAZOLE 40 MG/PACK PACK GT SCH ×2 (09:17→21:08)
[2021-05-14] MEDS: SILVER SULFADIAZINE CREAM 25 GM TUBE TP SCH (09:25)
[2021-05-14] MEDS: MEROPENEM 500 MG in IV NS 0.9% 50 ML IV SCH (16:12)
[2021-05-14] MEDS: NEPRO 1,000 ML BOTTLE GT PRN (16:15)
[2021-05-14] MEDS ORDERED: VECURONIUM 10 MG VIAL IV ONE (16:24)
[2021-05-14] MEDS ORDERED: NORMAL SALINE 10 ML DISP.SYRIN IV ONE (16:24)
[2021-05-15] VITALS (68 sets, daily range): BP systolic 122–166; BP diastolic 63–90
[2021-05-15] MEDS: FENTANYL CITRAT IV 2,500 MCG in IV NS 0.9% 200 ML IV PRN ×2 (04:01→13:02)
[2021-05-15 05:29] LABS: BASOPHILS # (AUTO) 0.1 K/uL (0.0-0.2); BASOPHILS % (AUTO) 1.4 % (0.0-2.0); EOSINOPHILS % (AUTO) 2.7 % (0.0-6.0); HEMATOCRIT 22 % (39-51); HEMOGLOBIN 7.7 g/dL (13.5-17.5); LYMPHOCYTES # (AUTO) 1.9 K/uL (0.8-4.8); LYMPHOCYTES % (AUTO) 20.6 % (20.0-44.0); MEAN CORPUSCULAR HGB CONC 35 g/dl (31.0-36.0); MEAN CORPUSCULAR VOLUME 83 fL (80-96); MONOCYTES # (AUTO) 0.7 K/uL (0.1-1.30); MONOCYTES % (AUTO) 7.9 % (2.0-12.0); NEUTROPHILS # (AUTO) 6.4 K/uL (1.8-8.9); NEUTROPHILS % (AUTO) 67.4 % (43.0-81.0); PLATELET COUNT (AUTO) 573 K/uL (150-450); RED BLOOD CELL COUNT(AUTO) 2.66 MIL/uL (4.5-6.0); WHITE BLOOD COUNT (AUTO) 9.4 K/uL (4.3-11.0)
[2021-05-15 05:38] LABS: CALCIUM, SERUM 8.5 mg/dL (8.5-10.1); POTASSIUM 4.7 mmol/L (3.5-5.1)
[2021-05-15 06:07] LABS: CREATININE 8.4 mg/dL (0.6-1.3)
[2021-05-15] MEDS: MIDAZOLAM HCL 100 MG in IV NS 0.9% 80 ML IV PRN ×2 (07:25→17:05)
[2021-05-15] MEDS: PANTOPRAZOLE 40 MG/PACK PACK GT SCH ×2 (08:14→21:15)
[2021-05-15] MEDS: PROSOURCE / PROSTAT (PYXIS) 30 ML UDC NG SCH ×2 (08:15→16:29)
[2021-05-15] MEDS: SILVER SULFADIAZINE CREAM 25 GM TUBE TP SCH (08:15)
[2021-05-15] MEDS: ACETAMINOPHEN 650 MG/20.3 ML UDC NG PRN ×3 (08:20→23:28)
[2021-05-15] MEDS: MEROPENEM 500 MG in IV NS 0.9% 50 ML IV SCH (16:29)
[2021-05-15] MEDS: NEPRO 1,000 ML BOTTLE GT PRN (17:04)
[2021-05-15] MEDS ORDERED: FENTANYL PF 100MCG/2ML AMPUL ONE (23:03)
[2021-05-15] MEDS ORDERED: KEY,NONCONTROL,TO KEEP IN PYXI 1 EA MC ONE (23:17)
[2021-05-15] MEDS: MORPHINE SULFATE INJ 2 MG/ML DISP.SYRIN IV PRN (23:44)
[2021-05-16] VITALS (43 sets, daily range): BP systolic 131–169; BP diastolic 71–112
[2021-05-16 05:19] LABS: CALCIUM, SERUM 8.5 mg/dL (8.5-10.1); POTASSIUM 4.7 mmol/L (3.5-5.1)
[2021-05-16 05:32] LABS: BASOPHILS # (AUTO) 0.2 K/uL (0.0-0.2); BASOPHILS % (AUTO) 1.7 % (0.0-2.0); EOSINOPHILS % (AUTO) 1.9 % (0.0-6.0); HEMATOCRIT 21 % (39-51); HEMOGLOBIN 7.3 g/dL (13.5-17.5); LYMPHOCYTES % (AUTO) 10.5 % (20.0-44.0); MEAN CORPUSCULAR HGB CONC 35 g/dl (31.0-36.0); MEAN CORPUSCULAR VOLUME 82 fL (80-96); MONOCYTES # (AUTO) 0.8 K/uL (0.1-1.30); MONOCYTES % (AUTO) 8.6 % (2.0-12.0); NEUTROPHILS # (AUTO) 7.4 K/uL (1.8-8.9); NEUTROPHILS % (AUTO) 77.3 % (43.0-81.0); PLATELET COUNT (AUTO) 620 K/uL (150-450); RED BLOOD CELL COUNT(AUTO) 2.52 MIL/uL (4.5-6.0); WHITE BLOOD COUNT (AUTO) 9.5 K/uL (4.3-11.0)
[2021-05-16 06:08] LABS: CREATININE 10.5 mg/dL (0.6-1.3)
[2021-05-16] MEDS: FENTANYL CITRAT IV 2,500 MCG in IV NS 0.9% 200 ML IV PRN (07:49)
[2021-05-16] MEDS: MIDAZOLAM HCL 100 MG in IV NS 0.9% 80 ML IV PRN (08:11)
[2021-05-16] MEDS: PANTOPRAZOLE 40 MG/PACK PACK GT SCH ×2 (08:25→21:16)
[2021-05-16] MEDS: PROSOURCE / PROSTAT (PYXIS) 30 ML UDC NG SCH ×2 (08:25→16:19)
[2021-05-16] MEDS: SILVER SULFADIAZINE CREAM 25 GM TUBE TP SCH (08:25)
[2021-05-16] MEDS: hydrALAZINE HCL IV 20 MG VIAL IV PRN (08:59)
[2021-05-16] MEDS: QUETIAPINE FUMARATE 25 MG TABLET PO SCH (16:20)
[2021-05-16] MEDS ORDERED: PHENYLEPHRINE HCL IN 0.9% NACL 50 MG in PREMIX 1 EA IV PRN (17:30)
[2021-05-16] MEDS: MEROPENEM 500 MG in IV NS 0.9% 50 ML IV SCH (18:49)
[2021-05-16] MEDS: VANCOMYCIN 500 MG in IV D5W 100 ML IV PRN (20:41)
[2021-05-17] VITALS (38 sets, daily range): BP systolic 131–174; BP diastolic 78–111
[2021-05-17 04:55] LABS: BASOPHILS # (AUTO) 0.2 K/uL (0.0-0.2); BASOPHILS % (AUTO) 1.8 % (0.0-2.0); EOSINOPHILS % (AUTO) 0.9 % (0.0-6.0); HEMATOCRIT 22 % (39-51); HEMOGLOBIN 7.5 g/dL (13.5-17.5); LYMPHOCYTES # (AUTO) 1.1 K/uL (0.8-4.8); MEAN CORPUSCULAR HGB CONC 35 g/dl (31.0-36.0); MEAN CORPUSCULAR VOLUME 82 fL (80-96); MONOCYTES # (AUTO) 0.6 K/uL (0.1-1.30); MONOCYTES % (AUTO) 6.1 % (2.0-12.0); NEUTROPHILS # (AUTO) 7.5 K/uL (1.8-8.9); NEUTROPHILS % (AUTO) 79.2 % (43.0-81.0); PLATELET COUNT (AUTO) 651 K/uL (150-450); RED BLOOD CELL COUNT(AUTO) 2.63 MIL/uL (4.5-6.0); WHITE BLOOD COUNT (AUTO) 9.5 K/uL (4.3-11.0)
[2021-05-17 05:07] LABS: CALCIUM, SERUM 8.5 mg/dL (8.5-10.1); PHOSPHORUS 5.6 mg/dL (2.5-4.9); POTASSIUM 4.3 mmol/L (3.5-5.1)
[2021-05-17 05:32] LABS: CREATININE 7.7 mg/dL (0.6-1.3)
[2021-05-17] MEDS: NEPRO 1,000 ML BOTTLE GT PRN (07:12)
[2021-05-17] MEDS: QUETIAPINE FUMARATE 25 MG TABLET PO SCH ×2 (08:14→16:10)
[2021-05-17] MEDS: PANTOPRAZOLE 40 MG/PACK PACK GT SCH ×2 (08:14→21:56)
[2021-05-17] MEDS: PROSOURCE / PROSTAT (PYXIS) 30 ML UDC NG SCH ×2 (08:15→16:10)
[2021-05-17] MEDS: SILVER SULFADIAZINE CREAM 25 GM TUBE TP SCH (08:15)
[2021-05-17] MEDS: MEROPENEM 500 MG in IV NS 0.9% 50 ML IV SCH (16:10)
[2021-05-17] MEDS: hydrALAZINE HCL IV 20 MG VIAL IV PRN (17:29)
[2021-05-18] VITALS (20 sets, daily range): BP systolic 132–170; BP diastolic 83–107
[2021-05-18 05:20] LABS: BASOPHILS # (AUTO) 0.2 K/uL (0.0-0.2); BASOPHILS % (AUTO) 1.6 % (0.0-2.0); EOSINOPHILS % (AUTO) 1.1 % (0.0-6.0); HEMATOCRIT 24 % (39-51); HEMOGLOBIN 8.1 g/dL (13.5-17.5); LYMPHOCYTES # (AUTO) 1.4 K/uL (0.8-4.8); LYMPHOCYTES % (AUTO) 12.7 % (20.0-44.0); MEAN CORPUSCULAR HGB CONC 34 g/dl (31.0-36.0); MEAN CORPUSCULAR VOLUME 82 fL (80-96); MONOCYTES # (AUTO) 0.8 K/uL (0.1-1.30); MONOCYTES % (AUTO) 6.8 % (2.0-12.0); NEUTROPHILS # (AUTO) 8.6 K/uL (1.8-8.9); NEUTROPHILS % (AUTO) 77.8 % (43.0-81.0); PLATELET COUNT (AUTO) 771 K/uL (150-450); RED BLOOD CELL COUNT(AUTO) 2.88 MIL/uL (4.5-6.0); WHITE BLOOD COUNT (AUTO) 11.1 K/uL (4.3-11.0)
[2021-05-18 05:28] LABS: CALCIUM, SERUM 8.3 mg/dL (8.5-10.1); POTASSIUM 3.2 mmol/L (3.5-5.1)
[2021-05-18] MEDS: SILVER SULFADIAZINE CREAM 25 GM TUBE TP SCH (08:51)
[2021-05-18] MEDS: QUETIAPINE FUMARATE 25 MG TABLET PO SCH ×2 (08:52→17:37)
[2021-05-18] MEDS: PANTOPRAZOLE 40 MG/PACK PACK GT SCH ×2 (08:52→21:02)
[2021-05-18] MEDS: PROSOURCE / PROSTAT (PYXIS) 30 ML UDC NG SCH ×2 (09:00→17:59)
[2021-05-18] MEDS: MEROPENEM 500 MG in IV NS 0.9% 50 ML IV SCH (16:32)
[2021-05-18] MEDS: NEPRO 1,000 ML BOTTLE GT PRN (17:36)
[2021-05-18] MEDS: ACETAMINOPHEN 650 MG/20.3 ML UDC NG PRN (17:37)
[2021-05-18] MEDS: VANCOMYCIN 500 MG in IV D5W 100 ML IV PRN (17:59)
[2021-05-19] VITALS: BP 163/98
[2021-05-19] MEDS: hydrALAZINE HCL IV 20 MG VIAL IV PRN (02:18)
[2021-05-19 04:00] VITALS: BP 144/89
[2021-05-19] MEDS: ACETAMINOPHEN 650 MG/20.3 ML UDC NG PRN (04:19)
[2021-05-19 08:00] VITALS: BP 144/89
[2021-05-19] MEDS: PANTOPRAZOLE 40 MG/PACK PACK GT SCH ×2 (09:38→21:03)
[2021-05-19] MEDS: QUETIAPINE FUMARATE 25 MG TABLET PO SCH ×2 (09:38→16:57)
[2021-05-19] MEDS: PROSOURCE / PROSTAT (PYXIS) 30 ML UDC NG SCH ×3 (09:39→16:57)
[2021-05-19] MEDS: SILVER SULFADIAZINE CREAM 25 GM TUBE TP SCH (09:41)
[2021-05-19 10:32] LABS: BASOPHILS % (AUTO) 0.7 % (0.0-2.0); EOSINOPHILS % (AUTO) 2.6 % (0.0-6.0); HEMATOCRIT 23 % (39-51); HEMOGLOBIN 7.6 g/dL (13.5-17.5); LYMPHOCYTES # (AUTO) 1.5 K/uL (0.8-4.8); LYMPHOCYTES % (AUTO) 21.9 % (20.0-44.0); MEAN CORPUSCULAR HGB CONC 34 g/dl (31.0-36.0); MEAN CORPUSCULAR VOLUME 83 fL (80-96); MONOCYTES # (AUTO) 0.6 K/uL (0.1-1.30); MONOCYTES % (AUTO) 9.4 % (2.0-12.0); NEUTROPHILS # (AUTO) 4.4 K/uL (1.8-8.9); NEUTROPHILS % (AUTO) 65.4 % (43.0-81.0); PLATELET COUNT (AUTO) 730 K/uL (150-450); RED BLOOD CELL COUNT(AUTO) 2.73 MIL/uL (4.5-6.0); WHITE BLOOD COUNT (AUTO) 6.7 K/uL (4.3-11.0)
[2021-05-19 11:18] LABS: CALCIUM, SERUM 8.5 mg/dL (8.5-10.1); CREATININE 4.9 mg/dL (0.6-1.3); POTASSIUM 3.2 mmol/L (3.5-5.1)
[2021-05-19 12:00] VITALS: BP 131/83
[2021-05-19] MEDS: HALOPERIDOL LACTATE INJ 5 MG/ML VIAL IM PRN ×3 (12:25→22:24)
[2021-05-19 16:00] VITALS: BP 156/99
[2021-05-19] MEDS: LORAZEPAM INJ 2 MG/ML VIAL IV PRN ×2 (16:23→21:03)
[2021-05-19] MEDS: MEROPENEM 500 MG in IV NS 0.9% 50 ML IV SCH (17:35)
[2021-05-19 20:00] VITALS: BP 153/87
[2021-05-20] VITALS: BP 147/88
[2021-05-20] MEDS: ACETAMINOPHEN 650 MG/20.3 ML UDC NG PRN (00:04)
[2021-05-20] MEDS: LORAZEPAM INJ 2 MG/ML VIAL IV PRN ×3 (02:05→16:01)
[2021-05-20 04:00] VITALS: BP 145/94
[2021-05-20 08:00] VITALS: BP 163/103
[2021-05-20 08:24] LABS: CALCIUM, SERUM 8.6 mg/dL (8.5-10.1); CREATININE 4.1 mg/dL (0.6-1.3)
[2021-05-20] MEDS: PANTOPRAZOLE 40 MG/PACK PACK GT SCH ×2 (08:32→21:53)
[2021-05-20] MEDS: QUETIAPINE FUMARATE 25 MG TABLET PO SCH ×2 (08:33→17:48)
[2021-05-20] MEDS: SILVER SULFADIAZINE CREAM 25 GM TUBE TP SCH (08:36)
[2021-05-20] MEDS: PROSOURCE / PROSTAT (PYXIS) 30 ML UDC NG SCH ×3 (08:46→17:48)
[2021-05-20 08:56] LABS: BASOPHILS % (AUTO) 0.4 % (0.0-2.0); EOSINOPHILS % (AUTO) 2.7 % (0.0-6.0); HEMATOCRIT 23 % (39-51); HEMOGLOBIN 7.6 g/dL (13.5-17.5); LYMPHOCYTES # (AUTO) 1.5 K/uL (0.8-4.8); LYMPHOCYTES % (AUTO) 21.4 % (20.0-44.0); MEAN CORPUSCULAR HGB CONC 34 g/dl (31.0-36.0); MEAN CORPUSCULAR VOLUME 84 fL (80-96); MONOCYTES # (AUTO) 0.8 K/uL (0.1-1.30); MONOCYTES % (AUTO) 11.6 % (2.0-12.0); NEUTROPHILS # (AUTO) 4.5 K/uL (1.8-8.9); NEUTROPHILS % (AUTO) 63.9 % (43.0-81.0); PLATELET COUNT (AUTO) 770 K/uL (150-450); RED BLOOD CELL COUNT(AUTO) 2.68 MIL/uL (4.5-6.0); WHITE BLOOD COUNT (AUTO) 7.1 K/uL (4.3-11.0)
[2021-05-20 10:53] LABS: ABG OXYGEN SATURATION 98.1 % (92.0-98.5); ABG PCO2 34.4 mmHg (35.0-45.0); ABG PH 7.515 (7.350-7.450); ABG PO2 138.1 mmHg (75.0-100.0); AaDO2 71.5 mmHg; COHb 0.3 % (0.5-1.5); MetHb 0.3 % (0.0-1.5); O2Hb 97.5 % (94.0-97.0); SITE, ABG Right Radial; VENT MODE, BG CA 35%
[2021-05-20] MEDS: POTASSIUM CL. PREMIX PERIPHER. 50 ML IV SCH ×2 (10:55→11:55)
[2021-05-20] MEDS: NEPRO 1,000 ML BOTTLE GT PRN (11:01)
[2021-05-20 12:00] VITALS: BP 149/88
[2021-05-20 16:00] VITALS: BP 158/97
[2021-05-20 20:00] VITALS: BP 150/86
[2021-05-21] VITALS: BP 142/88
[2021-05-21] MEDS ORDERED: IV PREMIX 0.45% NS + KCL 1,000 ML IV ONE (01:40)
[2021-05-21] MEDS: LORAZEPAM INJ 2 MG/ML VIAL IV PRN ×3 (03:08→13:14)
[2021-05-21 04:00] VITALS: BP 152/99
[2021-05-21 08:00] VITALS: BP 159/99
[2021-05-21] MEDS: PROSOURCE / PROSTAT (PYXIS) 30 ML UDC NG SCH ×3 (08:13→17:25)
[2021-05-21] MEDS: PANTOPRAZOLE 40 MG/PACK PACK GT SCH ×2 (08:14→21:23)
[2021-05-21] MEDS: QUETIAPINE FUMARATE 25 MG TABLET PO SCH ×2 (08:14→17:25)
[2021-05-21] MEDS: SILVER SULFADIAZINE CREAM 25 GM TUBE TP SCH (08:14)
[2021-05-21 09:19] LABS: BASOPHILS % (AUTO) 0.6 % (0.0-2.0); EOSINOPHILS % (AUTO) 2.8 % (0.0-6.0); HEMATOCRIT 25 % (39-51); HEMOGLOBIN 8.3 g/dL (13.5-17.5); LYMPHOCYTES # (AUTO) 1.6 K/uL (0.8-4.8); LYMPHOCYTES % (AUTO) 19.6 % (20.0-44.0); MEAN CORPUSCULAR HGB CONC 33 g/dl (31.0-36.0); MEAN CORPUSCULAR VOLUME 84 fL (80-96); MONOCYTES # (AUTO) 0.8 K/uL (0.1-1.30); MONOCYTES % (AUTO) 9.8 % (2.0-12.0); NEUTROPHILS # (AUTO) 5.6 K/uL (1.8-8.9); NEUTROPHILS % (AUTO) 67.2 % (43.0-81.0); PLATELET COUNT (AUTO) 822 K/uL (150-450); RED BLOOD CELL COUNT(AUTO) 2.99 MIL/uL (4.5-6.0); WHITE BLOOD COUNT (AUTO) 8.3 K/uL (4.3-11.0)
[2021-05-21 14:08] LABS: CREATININE 3.2 mg/dL (0.6-1.3); POTASSIUM 3.4 mmol/L (3.5-5.1)
[2021-05-21 16:00] VITALS: BP 149/98
[2021-05-21 20:00] VITALS: BP 157/87
[2021-05-21 21:29] VITALS: BP 157/87
[2021-05-22] VITALS (7 sets, daily range): BP systolic 137–157; BP diastolic 65–100
[2021-05-22] MEDS: NEPRO 1,000 ML BOTTLE GT PRN (00:05)
[2021-05-22] MEDS: PANTOPRAZOLE 40 MG/PACK PACK GT SCH ×2 (08:27→20:37)
[2021-05-22] MEDS: PROSOURCE / PROSTAT (PYXIS) 30 ML UDC NG SCH ×3 (08:28→17:54)
[2021-05-22] MEDS: QUETIAPINE FUMARATE 25 MG TABLET PO SCH ×2 (08:28→17:55)
[2021-05-22] MEDS: SILVER SULFADIAZINE CREAM 25 GM TUBE TP SCH (08:29)
[2021-05-22] MEDS ORDERED: Potassium Chloride 40 MEQ in IV D5W 1,000 ML IV PRN (17:00)
[2021-05-22] MEDS: LORAZEPAM INJ 2 MG/ML VIAL IV PRN (20:01)
[2021-05-23] VITALS: BP 143/90
[2021-05-23] MEDS: LORAZEPAM INJ 2 MG/ML VIAL IV PRN ×2 (02:29→18:26)
[2021-05-23 04:00] VITALS: BP 137/87
[2021-05-23 08:00] VITALS: BP 152/88
[2021-05-23] MEDS: PANTOPRAZOLE 40 MG/PACK PACK GT SCH ×2 (08:59→20:42)
[2021-05-23] MEDS: QUETIAPINE FUMARATE 25 MG TABLET PO SCH ×2 (09:01→17:03)
[2021-05-23] MEDS: PROSOURCE / PROSTAT (PYXIS) 30 ML UDC NG SCH ×3 (09:05→17:17)
[2021-05-23 09:32] LABS: BASOPHILS # (AUTO) 0.3 K/uL (0.0-0.2); BASOPHILS % (AUTO) 3.3 % (0.0-2.0); EOSINOPHILS % (AUTO) 3.4 % (0.0-6.0); HEMATOCRIT 27 % (39-51); HEMOGLOBIN 8.9 g/dL (13.5-17.5); LYMPHOCYTES # (AUTO) 2.3 K/uL (0.8-4.8); LYMPHOCYTES % (AUTO) 21.8 % (20.0-44.0); MEAN CORPUSCULAR HGB CONC 33 g/dl (31.0-36.0); MEAN CORPUSCULAR VOLUME 85 fL (80-96); MONOCYTES # (AUTO) 0.6 K/uL (0.1-1.30); MONOCYTES % (AUTO) 6.1 % (2.0-12.0); NEUTROPHILS # (AUTO) 6.8 K/uL (1.8-8.9); NEUTROPHILS % (AUTO) 65.4 % (43.0-81.0); PLATELET COUNT (AUTO) 880 K/uL (150-450); RED BLOOD CELL COUNT(AUTO) 3.15 MIL/uL (4.5-6.0); WHITE BLOOD COUNT (AUTO) 10.4 K/uL (4.3-11.0)
[2021-05-23 12:00] VITALS: BP 139/94
[2021-05-23] MEDS: SILVER SULFADIAZINE CREAM 25 GM TUBE TP SCH (12:00)
[2021-05-23] MEDS: NEPRO 1,000 ML BOTTLE GT PRN (12:01)
[2021-05-23 12:49] LABS: CALCIUM, SERUM 9.4 mg/dL (8.5-10.1); CREATININE 2.2 mg/dL (0.6-1.3); POTASSIUM 4.6 mmol/L (3.5-5.1)
[2021-05-23 16:00] VITALS: BP 146/98
[2021-05-23 20:00] VITALS: BP 153/88
[2021-05-24 04:00] VITALS: BP 145/102
[2021-05-24] MEDS: LORAZEPAM INJ 2 MG/ML VIAL IV PRN ×2 (04:25→08:32)
[2021-05-24] MEDS: QUETIAPINE FUMARATE 25 MG TABLET PO SCH ×2 (08:32→16:43)
[2021-05-24] MEDS: PANTOPRAZOLE 40 MG/PACK PACK GT SCH ×2 (08:32→21:46)
[2021-05-24] MEDS: PROSOURCE / PROSTAT (PYXIS) 30 ML UDC NG SCH ×3 (09:51→16:43)
[2021-05-24] MEDS: SILVER SULFADIAZINE CREAM 25 GM TUBE TP SCH (09:51)
[2021-05-24 11:11] LABS: BASOPHILS # (AUTO) 0.1 K/uL (0.0-0.2); BASOPHILS % (AUTO) 1.2 % (0.0-2.0); HEMATOCRIT 29 % (39-51); HEMOGLOBIN 9.3 g/dL (13.5-17.5); LYMPHOCYTES # (AUTO) 2.9 K/uL (0.8-4.8); LYMPHOCYTES % (AUTO) 24.3 % (20.0-44.0); MEAN CORPUSCULAR HGB CONC 32 g/dl (31.0-36.0); MEAN CORPUSCULAR VOLUME 85 fL (80-96); MONOCYTES # (AUTO) 0.7 K/uL (0.1-1.30); MONOCYTES % (AUTO) 5.4 % (2.0-12.0); NEUTROPHILS % (AUTO) 66.1 % (43.0-81.0); PLATELET COUNT (AUTO) 687 K/uL (150-450); RED BLOOD CELL COUNT(AUTO) 3.42 MIL/uL (4.5-6.0); WHITE BLOOD COUNT (AUTO) 12.1 K/uL (4.3-11.0)
[2021-05-24 11:21] LABS: CALCIUM, SERUM 9.6 mg/dL (8.5-10.1); CREATININE 2.2 mg/dL (0.6-1.3); POTASSIUM 4.2 mmol/L (3.5-5.1)
[2021-05-24] MEDS: HALOPERIDOL LACTATE INJ 5 MG/ML VIAL IM PRN (13:26)
[2021-05-25] MEDS: NEPRO 1,000 ML BOTTLE GT PRN (04:18)
[2021-05-25] MEDS: LORAZEPAM INJ 2 MG/ML VIAL IV PRN ×3 (05:46→22:48)
[2021-05-25] MEDS ORDERED: QUETIAPINE FUMARATE 25 MG TABLET ONE (09:10)
[2021-05-25] MEDS: PANTOPRAZOLE 40 MG/PACK PACK GT SCH ×2 (09:12→20:49)
[2021-05-25] MEDS: SILVER SULFADIAZINE CREAM 25 GM TUBE TP SCH (09:16)
[2021-05-25] MEDS: PROSOURCE / PROSTAT (PYXIS) 30 ML UDC NG SCH ×3 (09:16→18:22)
[2021-05-25] MEDS ORDERED: diphenhydrAMINE HCL 50 MG/ML VIAL IM PRN (09:30)
[2021-05-25] MEDS ORDERED: HALOPERIDOL LACTATE INJ 5 MG/ML VIAL IM PRN (11:00)
[2021-05-25] MEDS: QUETIAPINE FUMARATE 25 MG TABLET PO SCH ×3 (12:58→20:49)
[2021-05-25 20:00] VITALS: BP 130/70
[2021-05-26 07:27] LABS: BASOPHILS # (AUTO) 0.4 K/uL (0.0-0.2); BASOPHILS % (AUTO) 3.7 % (0.0-2.0); EOSINOPHILS % (AUTO) 5.3 % (0.0-6.0); HEMATOCRIT 25 % (39-51); HEMOGLOBIN 8.4 g/dL (13.5-17.5); LYMPHOCYTES # (AUTO) 2.9 K/uL (0.8-4.8); LYMPHOCYTES % (AUTO) 27.7 % (20.0-44.0); MEAN CORPUSCULAR HGB CONC 34 g/dl (31.0-36.0); MEAN CORPUSCULAR VOLUME 84 fL (80-96); MONOCYTES # (AUTO) 0.6 K/uL (0.1-1.30); MONOCYTES % (AUTO) 6.1 % (2.0-12.0); NEUTROPHILS # (AUTO) 5.9 K/uL (1.8-8.9); NEUTROPHILS % (AUTO) 57.2 % (43.0-81.0); PLATELET COUNT (AUTO) 650 K/uL (150-450); RED BLOOD CELL COUNT(AUTO) 2.98 MIL/uL (4.5-6.0); WHITE BLOOD COUNT (AUTO) 10.4 K/uL (4.3-11.0)
[2021-05-26 09:01] LABS: CALCIUM, SERUM 9.1 mg/dL (8.5-10.1); CREATININE 1.9 mg/dL (0.6-1.3); POTASSIUM 3.6 mmol/L (3.5-5.1)
[2021-05-26] MEDS: PANTOPRAZOLE 40 MG/PACK PACK GT SCH ×2 (09:16→20:15)
[2021-05-26] MEDS: QUETIAPINE FUMARATE 25 MG TABLET PO SCH ×4 (09:16→20:16)
[2021-05-26] MEDS: PROSOURCE / PROSTAT (PYXIS) 30 ML UDC NG SCH ×2 (09:16→13:37)
[2021-05-26] MEDS: SILVER SULFADIAZINE CREAM 25 GM TUBE TP SCH (10:52)
[2021-05-26 20:00] VITALS: BP 116/73
[2021-05-26] MEDS: LORAZEPAM INJ 2 MG/ML VIAL IV PRN (21:48)
[2021-05-27 04:00] VITALS: BP 118/76
[2021-05-27 07:00] LABS: BASOPHILS # (AUTO) 0.2 K/uL (0.0-0.2); BASOPHILS % (AUTO) 2.3 % (0.0-2.0); EOSINOPHILS % (AUTO) 4.9 % (0.0-6.0); HEMATOCRIT 28 % (39-51); HEMOGLOBIN 9.3 g/dL (13.5-17.5); LYMPHOCYTES # (AUTO) 2.3 K/uL (0.8-4.8); LYMPHOCYTES % (AUTO) 22.8 % (20.0-44.0); MEAN CORPUSCULAR HGB CONC 34 g/dl (31.0-36.0); MEAN CORPUSCULAR VOLUME 82 fL (80-96); MONOCYTES # (AUTO) 0.6 K/uL (0.1-1.30); MONOCYTES % (AUTO) 6.4 % (2.0-12.0); NEUTROPHILS # (AUTO) 6.4 K/uL (1.8-8.9); NEUTROPHILS % (AUTO) 63.6 % (43.0-81.0); PLATELET COUNT (AUTO) 624 K/uL (150-450); RED BLOOD CELL COUNT(AUTO) 3.34 MIL/uL (4.5-6.0); WHITE BLOOD COUNT (AUTO) 10.1 K/uL (4.3-11.0)
[2021-05-27 07:36] LABS: CALCIUM, SERUM 9.4 mg/dL (8.5-10.1); CREATININE 1.8 mg/dL (0.6-1.3); POTASSIUM 3.6 mmol/L (3.5-5.1)
[2021-05-27] MEDS: QUETIAPINE FUMARATE 25 MG TABLET PO SCH ×4 (09:02→20:31)
[2021-05-27] MEDS: PANTOPRAZOLE 40 MG/PACK PACK GT SCH ×2 (09:02→20:31)
[2021-05-27] MEDS: SILVER SULFADIAZINE CREAM 25 GM TUBE TP SCH (09:05)
[2021-05-27 20:00] VITALS: BP 124/79
[2021-05-28] VITALS: BP 121/73
[2021-05-28 04:00] VITALS: BP 122/78
[2021-05-28 07:25] LABS: BASOPHILS # (AUTO) 0.2 K/uL (0.0-0.2); BASOPHILS % (AUTO) 1.9 % (0.0-2.0); EOSINOPHILS % (AUTO) 4.6 % (0.0-6.0); HEMATOCRIT 25 % (39-51); HEMOGLOBIN 8.8 g/dL (13.5-17.5); LYMPHOCYTES # (AUTO) 2.6 K/uL (0.8-4.8); LYMPHOCYTES % (AUTO) 24.5 % (20.0-44.0); MEAN CORPUSCULAR HGB CONC 35 g/dl (31.0-36.0); MEAN CORPUSCULAR VOLUME 82 fL (80-96); MONOCYTES # (AUTO) 0.8 K/uL (0.1-1.30); MONOCYTES % (AUTO) 7.2 % (2.0-12.0); NEUTROPHILS # (AUTO) 6.6 K/uL (1.8-8.9); NEUTROPHILS % (AUTO) 61.8 % (43.0-81.0); PLATELET COUNT (AUTO) 569 K/uL (150-450); WHITE BLOOD COUNT (AUTO) 10.7 K/uL (4.3-11.0)
[2021-05-28 07:39] LABS: CALCIUM, SERUM 9.3 mg/dL (8.5-10.1); CREATININE 1.6 mg/dL (0.6-1.3); POTASSIUM 3.7 mmol/L (3.5-5.1)
[2021-05-28 08:00] VITALS: BP 137/90
[2021-05-28] MEDS: PANTOPRAZOLE 40 MG/PACK PACK GT SCH ×2 (08:23→21:07)
[2021-05-28] MEDS: QUETIAPINE FUMARATE 25 MG TABLET PO SCH ×4 (08:24→21:07)
[2021-05-28] MEDS: SILVER SULFADIAZINE CREAM 25 GM TUBE TP SCH (09:00)
[2021-05-28 16:00] VITALS: BP 138/87
[2021-05-28 20:00] VITALS: BP 134/85
[2021-05-29] VITALS: BP 131/74
[2021-05-29] MEDS: LORAZEPAM INJ 2 MG/ML VIAL IV PRN (00:05)
[2021-05-29 04:00] VITALS: BP 122/49
[2021-05-29] MEDS: QUETIAPINE FUMARATE 25 MG TABLET PO SCH ×4 (08:45→21:00)
[2021-05-29] MEDS: PANTOPRAZOLE 40 MG/PACK PACK GT SCH ×2 (08:45→21:00)
[2021-05-29] MEDS: SILVER SULFADIAZINE CREAM 25 GM TUBE TP SCH (09:10)
[2021-05-29] MEDS: ACETAMINOPHEN 650 MG/20.3 ML UDC NG PRN (11:40)
[2021-05-29 20:00] VITALS: BP 139/86
[2021-05-30 08:00] VITALS: BP 129/85
[2021-05-30] MEDS: PANTOPRAZOLE 40 MG/PACK PACK GT SCH ×2 (08:41→20:59)
[2021-05-30] MEDS: SILVER SULFADIAZINE CREAM 25 GM TUBE TP SCH (08:44)
[2021-05-30] MEDS: QUETIAPINE FUMARATE 25 MG TABLET PO SCH ×4 (08:45→20:59)
[2021-05-30 16:00] VITALS: BP 114/78
[2021-05-30] MEDS: LORAZEPAM INJ 2 MG/ML VIAL IV PRN (16:18)
[2021-05-30] MEDS: IBUPROFEN 600 MG TABLET PO PRN (18:04)
[2021-05-30 20:00] VITALS: BP 131/87
[2021-05-30] MEDS ORDERED: PHENOL/SODIUM PHENOLATE 1 LOZ LOZENGE PO ONE (21:00)
[2021-05-30] MEDS ORDERED: GUAIFENESIN/D-METHORPHAN HB 5 ML UDC PO PRN (21:00)
[2021-05-31] MEDS: IBUPROFEN 600 MG TABLET PO PRN (00:25)
[2021-05-31] MEDS: LORAZEPAM INJ 2 MG/ML VIAL IV PRN (00:48)
[2021-05-31 08:00] VITALS: BP 139/91
[2021-05-31] MEDS: QUETIAPINE FUMARATE 25 MG TABLET PO SCH ×4 (08:42→20:31)
[2021-05-31] MEDS: PANTOPRAZOLE 40 MG/PACK PACK GT SCH ×2 (08:42→20:31)
[2021-05-31] MEDS: SILVER SULFADIAZINE CREAM 25 GM TUBE TP SCH (09:25)
[2021-05-31 16:34] VITALS: BP 130/96
[2021-05-31 20:00] VITALS: BP 134/87
[2021-06-01] MEDS: IBUPROFEN 600 MG TABLET PO PRN (04:12)
[2021-06-01 04:30] VITALS: BP 126/70
[2021-06-01] MEDS: LORAZEPAM INJ 2 MG/ML VIAL IV PRN (04:40)
[2021-06-01 05:24] VITALS: BP 122/74
[2021-06-01] MEDS: PANTOPRAZOLE 40 MG/PACK PACK GT SCH ×2 (09:17→21:14)
[2021-06-01] MEDS: QUETIAPINE FUMARATE 25 MG TABLET PO SCH ×4 (09:17→21:14)
[2021-06-01] MEDS: SILVER SULFADIAZINE CREAM 25 GM TUBE TP SCH (09:25)
[2021-06-01 21:25] VITALS: BP 134/97
[2021-06-02] MEDS: PANTOPRAZOLE 40 MG/PACK PACK GT SCH (09:00)
[2021-06-02] MEDS: SILVER SULFADIAZINE CREAM 25 GM TUBE TP SCH (09:00)
[2021-06-02] MEDS: QUETIAPINE FUMARATE 25 MG TABLET PO SCH ×2 (09:03→12:24)
[2021-06-02] MEDS ORDERED: Quetiapine Fumarate PO (12:02)
[2021-06-02] MEDS ORDERED: FAMO-108 PO (12:02)
[2021-06-02] MEDS ORDERED: IBUP-1955 PO (12:02)
== END 2021-06-02 11:45 | DRG 4 ==
LOC: ER 23:54 → ICU 05-03 04:56 → TELE1 05-11 11:10 → ICU 05-11 11:15 → TELE1 05-18 18:10 → TELE-TD 05-18 18:15 → TELE1 05-20 11:30 → TELE 05-20 16:08 → MED 05-29 10:32
PROVIDERS: ADMIT Internal Medicine; ATTEND Internal Medicine
PROC: 5A1955Z Respiratory Ventilation, Greater than 96 Consecutive Hours (ICD-10-PCS; principal; 2021-05-03)
PROC: 0BH18EZ Insertion of Endotracheal Airway into Trachea, Via Natural or Artificial Opening Endoscopic (ICD-10-PCS; 2021-05-03)
PROC: 5A1D70Z Performance of Urinary Filtration, Intermittent, Less than 6 Hours Per Day (ICD-10-PCS; 2021-05-03)
PROC: 05HC33Z Insertion of Infusion Device into Left Basilic Vein, Percutaneous Approach (ICD-10-PCS; 2021-05-03)
PROC: 0BH17EZ Insertion of Endotracheal Airway into Trachea, Via Natural or Artificial Opening (ICD-10-PCS; 2021-05-09)
PROC: 0BJ08ZZ Inspection of Tracheobronchial Tree, Via Natural or Artificial Opening Endoscopic (ICD-10-PCS; 2021-05-10)
PROC: 0JHD3XZ Insertion of Tunneled Vascular Access Device into Right Upper Arm Subcutaneous Tissue and Fascia, Percutaneous Approach (ICD-10-PCS; 2021-05-12)
PROC: 05HM33Z Insertion of Infusion Device into Right Internal Jugular Vein, Percutaneous Approach (ICD-10-PCS; 2021-05-12)
PROC: B513YZA Fluoroscopy of Right Jugular Veins using Other Contrast, Guidance (ICD-10-PCS; 2021-05-12)
PROC: 0B113F4 Bypass Trachea to Cutaneous with Tracheostomy Device, Percutaneous Approach (ICD-10-PCS; 2021-05-14)
PROC: 0DH63UZ Insertion of Feeding Device into Stomach, Percutaneous Approach (ICD-10-PCS; 2021-05-16)
DX: T28.1XXA Burn of esophagus, initial encounter (principal); A41.9 Sepsis, unspecified organism; J96.01 Acute respiratory failure with hypoxia; R65.20 Severe sepsis without septic shock; J96.02 Acute respiratory failure with hypercapnia; G92.8 Other toxic encephalopathy; N17.0 Acute kidney failure with tubular necrosis; T23.302A Burn of third degree of left hand, unspecified site, initial encounter; T31.20 Burns involving 20-29% of body surface with 0% to 9% third degree burns; E87.2 Acidosis; E87.0 Hyperosmolality and hypernatremia; J95.851 Ventilator associated pneumonia; L03.114 Cellulitis of left upper limb; L03.811 Cellulitis of head [any part, except face]; T58.8X1A Toxic effect of carbon monoxide from other source, accidental (unintentional), initial encounter; E87.5 Hyperkalemia; D75.839 Thrombocytosis, unspecified; F20.9 Schizophrenia, unspecified; Y92.89 Other specified places as the place of occurrence of the external cause; Z20.822 Contact with and (suspected) exposure to COVID-19; E83.42 Hypomagnesemia; D64.9 Anemia, unspecified; K25.9 Gastric ulcer, unspecified as acute or chronic, without hemorrhage or perforation; K22.2 Esophageal obstruction; K21.00 Gastro-esophageal reflux disease with esophagitis, without bleeding; E78.1 Pure hyperglyceridemia; W34.00XS Accidental discharge from unspecified firearms or gun, sequela; E83.39 Other disorders of phosphorus metabolism; E83.51 Hypocalcemia; E87.6 Hypokalemia; T20.06XA Burn of unspecified degree of forehead and cheek, initial encounter; T20.011A Burn of unspecified degree of right ear [any part, except ear drum], initial encounter; S80.812A Abrasion, left lower leg, initial encounter; X58.XXXA Exposure to other specified factors, initial encounter; Y92.9 Unspecified place or not applicable; Y84.8 Other medical procedures as the cause of abnormal reaction of the patient, or of later complication, without mention of misadventure at the time of the procedure; F29 Unspecified psychosis not due to a substance or known physiological condition; H60.11 Cellulitis of right external ear
CPT/HCPCS: 31623; 31720; 36410; 36415; 36600; 70450-TC; 70490-TC; 70551-TC; 71045-TC; 74018; 80048-TC; 80053-TC; 80076-TC; 80202-TC; 81001; 82010-TC; 82140-TC; 82550-TC; 82553; 82803-TC; 83605-TC; 83735-TC; 84100-TC; 84478-TC; 84484-TC; 85025-TC; 85730-TC; 86706; 87040-TC; 87081-TC; 87086-TC; 87340; 90935-TC; 92526; 92611-TC; 94002-TC; 94003-TC; 94640-TC; 94760-TC; 94762-TC; 94799-TC; 97116-TC; 97530-TC; 99082-TC; A4217; A4623; A4624; A6253; A6403; A7526; C1750; C1769; C1894; C9113; C9803; G0378; G0480; J0360; J0610; J0690; J0692; J1630; J1644; J2060; J2185; J2250; J2270; J2370; J2405; J2543; J2704; J2997; J3010; J3370; J3475; J3480; J3490; J7030; J7042; J7050; J7060; J7070; J7120; L8501

== ENCOUNTER → 2023-11-02 | Emergency (ER) | payer OTHER ==
[~2023-11-02] VITALS: Ht 177.8 cm; Wt 92.5 kg
[~2023-11-02] MED LIST: FAMO-108 PO; IBUP-1955 PO; ONDA4TAB5 PO; ONDANSETRON HCL/PF 4 MG/2 ML VIAL ONE; Quetiapine Fumarate PO
[2023-11-02] MEDS: IV NS 0.9% 1,000 ML BAG IV ONE (11:29)
[2023-11-02] MEDS: ONDANSETRON HCL/PF 4 MG/2 ML VIAL IVP ONE (11:41)
[2023-11-02 11:42] LABS: BASOPHILS # (AUTO) 0.1 K/uL (0.0-0.2); BASOPHILS % (AUTO) 0.6 % (0.0-2.0); EOSINOPHILS # (AUTO) 0.2 K/uL (0.0-0.7); EOSINOPHILS % (AUTO) 2.3 % (0.0-6.0); HEMATOCRIT 47 % (39-51); HEMOGLOBIN 15.6 g/dL (13.5-17.5); LYMPHOCYTES # (AUTO) 2.6 K/uL (0.8-4.8); LYMPHOCYTES % (AUTO) 30.2 % (20.0-44.0); MEAN CORPUSCULAR HEMOGLOBIN 28 PG (26.0-33.0); MEAN CORPUSCULAR HGB CONC 33 g/dl (31.0-36.0); MEAN CORPUSCULAR VOLUME 83 fL (80-96); MONOCYTES # (AUTO) 0.7 K/uL (0.1-1.30); MONOCYTES % (AUTO) 7.7 % (2.0-12.0); NEUTROPHILS # (AUTO) 5.1 K/uL (1.8-8.9); NEUTROPHILS % (AUTO) 59.2 % (43.0-81.0); PLATELET COUNT (AUTO) 465 K/uL (150-450); RED BLOOD CELL COUNT(AUTO) 5.67 MIL/uL (4.5-6.0); RED CELL DISTRIBUTION WIDTH 14.3 % (11.5-15.0); WHITE BLOOD COUNT (AUTO) 8.6 K/uL (4.3-11.0)
[2023-11-02 11:46] LABS: CALCIUM, SERUM 9.3 mg/dL (8.5-10.1); CREATININE 1.6 mg/dL (0.6-1.3)
[2023-11-02 11:54] LABS: ALBUMIN 3.6 g/dL (3.4-5.0); BILIRUBIN,DIRECT 0.2 mg/dL (0.0-0.2); BILIRUBIN,TOTAL 0.9 mg/dL (0.2-1.0); TOTAL PROTEIN, SERUM 7.4 g/dL (6.4-8.2)
[2023-11-02 13:19] VITALS: BP 138/81; TEMP 97.9; O2SAT 100
== END | disposition home or self-care (01) ==
LOC: ER 11:09
DX: R11.2 Nausea with vomiting, unspecified (principal); N28.9 Disorder of kidney and ureter, unspecified; R73.9 Hyperglycemia, unspecified; R10.9 Unspecified abdominal pain; F15.10 Other stimulant abuse, uncomplicated; F41.9 Anxiety disorder, unspecified
CPT/HCPCS: 99283; 96374; 96361; 85025; 80048; 83690; 80076; 36415; J2405; J7030

== ENCOUNTER 2024-07-19 13:55 | Emergency (ER) | payer OTHER ==
[~2024-07-19] VITALS: Ht 177.8 cm; Wt 95.3 kg
[~2024-07-19 13:55] MED LIST changes: -ONDANSETRON HCL/PF 4 MG/2 ML VIAL ONE
[2024-07-19] MEDS ORDERED: NALOXONE PREFILLED SYRINGE 2 MG/2 ML SYRINGE ONE ×2 (15:17→16:21)
[2024-07-19 15:36] VITALS: O2SAT 97
[2024-07-19] MEDS: NALOXONE HCL 0.4 MG/ML AMPUL MC ONE (15:38)
[2024-07-19 15:56] VITALS: O2SAT 100
[2024-07-19] MEDS: NALOXONE HCL 0.4 MG/ML AMPUL IV ONE (16:26)
[2024-07-19 16:29] LABS: BASOPHILS % (AUTO) 0.2 % (0.0-2.0); EOSINOPHILS # (AUTO) 0.1 K/uL (0.0-0.7); EOSINOPHILS % (AUTO) 0.7 % (0.0-6.0); HEMATOCRIT 41 % (39-51); HEMOGLOBIN 13.6 g/dL (13.5-17.5); LYMPHOCYTES # (AUTO) 0.8 K/uL (0.8-4.8); LYMPHOCYTES % (AUTO) 8.9 % (20.0-44.0); MEAN CORPUSCULAR HEMOGLOBIN 27 PG (26.0-33.0); MEAN CORPUSCULAR HGB CONC 33 g/dl (31.0-36.0); MEAN CORPUSCULAR VOLUME 80 fL (80-96); MONOCYTES # (AUTO) 0.5 K/uL (0.1-1.30); MONOCYTES % (AUTO) 5.3 % (2.0-12.0); NEUTROPHILS # (AUTO) 8.1 K/uL (1.8-8.9); NEUTROPHILS % (AUTO) 84.9 % (43.0-81.0); PLATELET COUNT (AUTO) 362 K/uL (150-450); RED CELL DISTRIBUTION WIDTH 13.2 % (11.5-15.0); WHITE BLOOD COUNT (AUTO) 9.5 K/uL (4.3-11.0)
[2024-07-19 16:36] LABS: CALCIUM, SERUM 8.8 mg/dL (8.5-10.1); CARBON DIOXIDE 28 mmol/L (21-32); CHLORIDE 102 mmol/L (98-107); CREATININE 1.1 mg/dL (0.6-1.3); GLUCOSE 112 mg/dL (74-106); POTASSIUM 3.4 mmol/L (3.5-5.1); SODIUM SERUM 139 mmol/L (136-145); UREA NITROGEN, BLOOD 19 mg/dL (7-18)
[2024-07-19 16:41] LABS: ALANINE AMINOTRANSFERASE 33 U/L (12-78); ALBUMIN 3.5 g/dL (3.4-5.0); ALCOHOL, BLOOD < 3 mg/dL (0-10); ALKALINE PHOSPHATASE 71 U/L (46-116); ASPARTATE AMINOTRANSFERASE 43 U/L (15-37); BILIRUBIN,DIRECT 0.2 mg/dL (0.0-0.2); BILIRUBIN,TOTAL 0.8 mg/dL (0.2-1.0); TOTAL PROTEIN, SERUM 7.1 g/dL (6.4-8.2)
[2024-07-19 16:43] LABS: ACETAMINOPHEN <10 ug/ml (10-30); SALICYLATE 0.4 mg/dL (2.8-20.0)
[2024-07-19 16:58] LABS: APPEARANCE,URINE CLEAR (CLEAR); BILIRUBIN,URINE NEGATIVE (NEGATIVE); BLOOD, URINE NEGATIVE Ery/uL (NEGATIVE); COLOR,URINE YELLOW (YELLOW); KETONES,URINE NEGATIVE (NEGATIVE); LEUKOCYTE ESTERASE ,URINE NEGATIVE (NEGATIVE); NITRITE, URINE NEGATIVE (NEGATIVE); PH,URINE 5.5 (5.0-8.0); PROTEIN,URINE NEGATIVE (NEGATIVE); UGLUCOSE NEGATIVE (NEGATIVE); UROBILINOGEN,URINE 0.2 EU/dL (0.2)
[2024-07-19] MEDS ORDERED: ZOLP5TAB2 PO (17:13)
[2024-07-19] MEDS ORDERED: NALO4SPR BNOSTRILS (17:13)
[2024-07-19 17:19] VITALS: BP 116/64; TEMP 97.8; O2SAT 97
[2024-07-19 17:23] LABS: BARBITURATE, URINE NEGATIVE (NEGATIVE); BENZODIAZEPINE, URINE NEGATIVE (NEGATIVE); COCCAINE, URINE NEGATIVE (NEGATIVE); OPIATE, URINE NEGATIVE (NEGATIVE); PHENCYCLIDINE SCREEN,URINE NEGATIVE (NEGATIVE)
[2024-07-19 17:27] LABS: AMPHETAMINE, URINE POSITIVE (NEGATIVE); CANNABINOID, URINE POSITIVE (NEGATIVE)
[2024-07-20 15:56] VITALS: O2SAT 100
== END 2024-07-19 17:33 ==
LOC: ER 14:00
DX: T40.2X1A Poisoning by other opioids, accidental (unintentional), initial encounter (principal); R40.0 Somnolence; F19.10 Other psychoactive substance abuse, uncomplicated; R06.00 Dyspnea, unspecified; Z59.00 Homelessness unspecified; Y92.89 Other specified places as the place of occurrence of the external cause
CPT/HCPCS: 99284; 96374; 71045; 85025; 80048; 80076; 81003; 36415; 82962 ×2; 94640; 80143; 80320; 80307; J2310 ×2; G0480